=== PATIENT | male | born 1945 | race Caucasian/White ===

== ENCOUNTER 2023-10-08 00:56 | Observation (INO) | payer MEDICARE, OTHER, SELFPAY ==
[2023-10-08] VITALS (12 sets, daily range): BP systolic 132–168; BP diastolic 72–90; PULSE 61–87; RESP 11–24; TEMP 36.6–36.8; O2SAT 96–100; BMI 32.5; BMI 31.2
--- NOTE | 2023-10-08 01:27 | EKG12_ITS ---
Test Reason : cp Blood Pressure : / mmHG Vent. Rate : 086 BPM Atrial Rate : 086 BPM P-R Int : 194 ms QRS Dur : 084 ms QT Int : 364 ms P-R-T Axes : 021 -09 034 degrees QTc Int : 435 ms Sinus rhythm with frequent Premature ventricular complexes Minimal voltage criteria for LVH, may be normal variant ( R in aVL ) Septal infarct , age undetermined Abnormal ECG Confirmed by Ashish Kelly ([id number]), order editor ARIANNE DELACRUZ ([id number]) on 10/09/2023 11:06:18 AM Referred By: Confirmed By:Ashish Kelly
--- NOTE | 2023-10-08 01:27 | RAD_ITS ---
EXAM: XR Chest 1 View INDICATION: Male, 77 years old. Chest pain TECHNIQUE: Single AP view COMPARISON: None FINDINGS: DEVICES: None LUNGS: Mild elevation of the right hemidiaphragm. No confluent air space opacity. No concerning pulmonary nodule. No pleural effusion or pneumothorax. MEDIASTINUM: Borderline cardiomegaly. Mediastinal silhouette is within normal limits.. No central pulmonary vascular congestion. . SKELETAL STRUCTURES: No acute skeletal abnormality. Mild multilevel degenerative changes in the spine. UPPER ABDOMEN: Unremarkable RAD/Chest 1 View (Portable) IMPRESSION: Elevation right hemidiaphragm without acute cardiopulmonary disease Electronically Signed: Ra Somers MD at 2:21 EDT ,
--- NOTE | 2023-10-08 01:27 | ED.VIS.CHEST ---
HPI History of Present Illness Chief Complaint: Chest Pain Informant: patient Narrative Narrative: 77-year-old male who has had several episodes of chest discomfort left-sided pressure radiating into the left upper extremity, started day before yesterday, this past evening he had an episode this was about 3 hours ago, he took 2 nitroglycerin and it eventually went away and now he is asymptomatic but had a concerned because he needed to nitroglycerin to get the symptoms to resolve so he presents to the ER out of concern and advice of his PCP. He had a stent put in in 2013. His last normal stress test was about 2 years ago. The symptoms are similar to what he had when he had his stent put in. [facility] Medical History (Updated 10/08/23 @ 04:[address] Yelena Leblanc MD) Anemia CAD (coronary artery disease) CKD (chronic kidney disease), stage III Former tobacco use GERD (gastroesophageal reflux disease) HLD (hyperlipidemia) HTN (hypertension) Obesity Home Medications pantoprazole 40 mg tablet,delayed release 40 mg PO DAILY 10/08/23 [History Last Taken Unknown] pravastatin 20 mg tablet PO 10/08/23 [History Last Taken Unknown] Allergy/AdvReac Type Severity Reaction Status Date / Time No Known Allergies Allergy Verified 10/08/23 01:00 Surgical History (Updated 10/08/23 @ 04:[address] Yelena Leblanc MD) History of coronary angioplasty with insertion of stent Social History (Updated 10/08/23 @ 04:[address] Yelena Leblanc MD) household members: spouse Smoking Status: Former smoker alcohol intake: never substance use type: does not use ROS ROS ED Constitutional Constitutional ED: Denies chills or fever(s) Eyes Eyes: Denies change in vision or diplopia ENT ENT ED: Denies rhinorrhea or sore throat Cardiovascular Cardiovascular: Reports as per HPI, chest pain and radiating jaw, neck or arm pain; Denies palpitations Respiratory/Chest Respiratory/Chest: Denies cough or dyspnea Gastrointestinal Gastrointestinal: Denies abdominal pain, diarrhea, nausea or vomiting Genitourinary Genitourinary ED: Denies dysuria or hematuria Musculoskeletal Musculoskeletal: Denies back pain or neck pain Integumentary Denies abscess or rash Neurologic Neurologic: Denies headache(s), paresthesias or weakness Psychiatric Psychiatric: Denies anxiety or suicidal thoughts EXAM Physical Exam Const Vital Signs: 10/08/23 00:57 10/08/23 01:27 10/08/23 02:00 Temperature 97.9 F Temperature Source Temporal Pulse Rate 87 78 Respiratory Rate 24 H 19 H Blood Pressure 165/86 H 134/72 H Blood Pressure Mean 112 92 Pulse Ox 96 97 Oxygen Delivery Method Room Air Room Air Room Air 10/08/23 03:00 10/08/23 04:00 Temperature Temperature Source Pulse Rate 79 78 Respiratory Rate 23 H 19 H Blood Pressure 132/79 H 147/89 H Blood Pressure Mean 96 108 Pulse Ox 96 96 Oxygen Delivery Method Room Air Room Air Positive well nourished and well developed General Appearance ED: well developed and NAD HEENT Reports moist mucous membranes normocephalic and atraumatic Eyes PERRL and EOMs intact bilaterally Neck full ROM and supple Resp normal respiratory effort and clear to auscultation bilaterally Cardio regular rate, regular rhythm and no murmurs Peripheral Pulses: pulses 2+ throughout GI non-tender and non-distended Auscultation: normoactive bowel sounds Palpation: soft Back/Spine no CVA tenderness General Back: other FROM Extremity normal to inspection General Extremety ED: Negative for edema, pulses abnormal or tenderness General Extremity: Negative for edema or pulses abnormal Neuro oriented x3, CN's II-XII intact bilaterally and no sensory deficits noted Sensorium / Orientation: awake and alert Motor Exam: strength 5/5 throughout Psych mental status grossly normal Skin no rashes or lesions noted and no wounds Heart Score History: Highly Suspicious ECG: Nonspecific Repolarization Age: >/= 65 years Risk Factors: >/= 3 Risk Factors or History of CAD Troponin: </= Normal Limit Score: 7 MDM MDM MDM Narrative Medical decision making narrative: Patient's EKG does not show any acute injury pattern, he does have some ectopy. His workup is negative here, he was given aspirin did not have recurrent chest symptoms while here at rest. 2 sequential 2-hour troponin measurements were the same, at 43. His heart score is 7, he is amenable to being admitted for observation to get a stress test for further risk stratification, but at this point his symptoms are fairly high risk so I think that is most appropriate. Chest x-ray 1 view on my interpretation shows no acute abnormality radiology was in agreement. History & Record Review Additional record(s) reviewed:: Prior outpatient record Lab Data Attestation: I reviewed the patient's lab results. Labs: Laboratory Results - last 24 hr 10/08/23 10/08/23 01:43 03:55 WBC 4.8 RBC 3.90 L Hgb 11.7 L Hct 37.4 L MCV 95.9 H MCH 30.0 MCHC 31.3 L RDW Std Deviation 46.0 H RDW Coeff of Arti 13.0 Plt Count 157 MPV 9.6 Immature Gran % (Auto) 0.600 Neut % (Auto) 67.1 Lymph % (Auto) 21.3 [place] % (Auto) 8.7 Eos % (Auto) 1.7 Baso % (Auto) 0.6 Absolute Neuts (auto) 3.2 Absolute Lymphs (auto) 1.03 Nucleated RBC % 0 Sodium 145 Potassium 4.4 Chloride 112 H Carbon Dioxide 28.0 Anion Gap 5 BUN 21 H Creatinine 1.35 H Estim Creat Clear Calc 50.95 Est GFR (MDRD) Af Amer 66 Est GFR (MDRD) Non-Af 55 L BUN/Creatinine Ratio 15.6 Glucose 126 H Calcium 8.0 L Troponin I High Sens 43 43 Rhythm Strip Rhythm Strip: Sinus Rhythm Rate: 85 Ectopy: PVC(s) EKG Initial EKG: Attestation: I personally reviewed and interpreted this EKG as follows: Interpretation: Sinus Rhythm and No Acute Injury Pattern Comments: Anteroseptal Q waves. PVCs. No signs of acute injury pattern. Prior: No Prior Management Discussion w/another healthcare provider: Hospitalist Discharge Plan Dx/Rx/DC Orders Clinical Impression: Chest pain Disposition Disposition: Acute Care Hospital [facility]
[2023-10-08 01:49] LABS: Absolute Lymphocyte Count 1.03 X10^3/uL (0.83-4.51); Absolute Neutrophil Count 3.2 X10^3/uL (2.0-7.7); Basophil# 0.03 X10^3/uL; Basophil% 0.6 % (0-1); Eosinophil# 0.08 X10^3/uL; Eosinophils% 1.7 % (0-5); Hematocrit 37.4 % (40-54); Hemoglobin 11.7 g/dL (13.0-16.5); Lymphocyte # 1.03 X10^3/ul (0.83-4.51); Lymphocyte % 21.3 % (19-41); Mean Corp Hgb Conc 31.3 g/dL (32-36); Mean Corpuscular Volume 95.9 fL (80-94); Mean Platelet Vol. 9.6 fl (6.2-12.0); Monocyte# 0.42 X10^3/uL; Monocyte% 8.7 % (0-10); NRBC Flagged by Analyzer 0 % (0-5); Neutrophil # 3.24 X10^3/uL (2.7-7.7); Neutrophil % 67.1 % (47-70); Platelet Count 157 K/mm3 (150-450); White Blood Count 4.8 K/mm3 (4.4-11.0)
[2023-10-08 02:08] LABS: Anion Gap 5 (5-15); BUN 21 mg/dL (7-18); BUN/Creat Ratio 15.6 RATIO (10-20); Chloride 112 mmol/L (98-107); Creatinine, Serum 1.35 mg/dL (0.70-1.30); EST Glomerular Filtration Rate 55 mL/min (>60); Est Glom Filt Rate - Afr Amer 66 mL/min (>60); Estimated Creatinine Clearance 50.95 ml/min; Glucose 126 mg/dL (74-106); Potassium 4.4 mmol/L (3.5-5.1); Sodium Level 145 mmol/L (136-145); Troponin-I HS (w/2H Reflex) 43 pg/mL (3.0-78.0)
[2023-10-08] MEDS: Aspirin 81 MG TAB.CHEW 324 MG PO (03:11)
[2023-10-08 03:40] LABS: Reflex Troponin-HS? (from REC) Y
[2023-10-08 04:28] LABS: Troponin-I HS 43 pg/mL (3.0-78.0)
--- NOTE | 2023-10-08 04:48 | PCM.HP.STD ---
HPI - General General Date of Admission: 10/08/23 Date of Service: 10/08/23 Chief Complaint: Chest pain. HPI Narrative The patient is a 77 y/o M w/ PMHx: HTN, HLD, CAD s/p PCI, GERD, Obesity, Possible CKD stage III unclear subtype, Anemia who presents to the [facility] ED on 10/08/23 with history of several episodes of chest discomfort, left-sided described as a pressure like sensation radiating into the left upper extremity starting 48 hours prior with an episode the evening prior to presentation lasting about 3 hours prompting him to self administer 2 nitroglycerin with eventual improvement and resolution of his symptoms prompting eventual ED evaluation to be cautious. He notes his last stress test was approximately 2 years prior and he had a remote stent placed in 2013. He does state that the symptoms that he is currently having are similar to when he presented for his chest pain and required stent placement. He notes the discomfort at its worst was rated 5 out of 10 in severity and currently resolved. He denies any dyspnea, diaphoresis, nausea or emesis with his chest discomfort episodes. He notes that these of occurred at rest and seem irrespective of activity. Workup in the ED included T97.9, heart rate 87, BP initially 165/86 with most recent repeat 147/89, respiratory rate 24, 96% on room air, CBC with WBC 4.8, hemoglobin 11.7, MCV 95.9, platelet 157 that marked shift, BMP with chloride 112, BUN/creatinine 21/1.35, glucose 126, calcium 8, initial troponin 43 with repeat delta 43, chest x-ray preliminary with no acute cardiopulmonary findings but final read per radiology pending upon evaluation, EKG with sinus rhythm with anteroseptal Q waves, PVC with no acute evidence of ischemia with no comparison available. [facility] Medical History (Updated 10/08/23 @ 05:[address] Yelena Leblanc MD) Anemia CAD (coronary artery disease) CKD (chronic kidney disease), stage III GERD (gastroesophageal reflux disease) HLD (hyperlipidemia) HTN (hypertension) Obesity Home Medications carvedilol 6.25 mg tablet 6.25 mg PO BID 10/08/23 [History Last Taken Unknown] nitroglycerin 0.4 mg sublingual tablet mg sublingual 10/08/23 [History Last Taken Unknown] pantoprazole 40 mg tablet,delayed release 40 mg PO DAILY 10/08/23 [History Last Taken Unknown] pravastatin 20 mg tablet PO 10/08/23 [History Last Taken Unknown] Allergy/AdvReac Type Severity Reaction Status Date / Time No Known Allergies Allergy Verified 10/08/23 01:00 Family History (Updated 10/08/23 @ 05:[address] Yelena Leblanc MD) Mother Breast cancer Father Heart disease Hypertension CAD (coronary artery disease) Valvular heart disease Surgical History (Updated 10/08/23 @ 05:[address] Yelena Leblanc MD) History of coronary angioplasty with insertion of stent S/P bilateral inguinal hernia repair Social History (Updated 10/08/23 @ 05:[address] Yelena Leblanc MD) household members: spouse Smoking Status: Never smoker alcohol intake: current alcohol intake frequency: a few times a month substance use type: does not use ROS ROS Narrative Admission Review of Systems: CONSTITUTIONAL: No weight loss, fever, chills, + weakness or fatigue. HEENT: Eyes: No visual loss, blurred vision, double vision or yellow sclerae. Ears, Nose, Throat: No hearing loss, sneezing, congestion, runny nose or sore throat. SKIN: No rash or itching, lesions, wounds. CARDIOVASCULAR: + Chest discomfort. No palpitations, edema, orthopnea, syncopal events. RESPIRATORY: No shortness of breath, cough or sputum, wheezing, hemoptysis. GASTROINTESTINAL: No anorexia, nausea, vomiting or diarrhea, abdominal pain, melena, BRBPR. GENITOURINARY: No dysuria, frequency, urgency or retention. NEUROLOGICAL: No headache, dizziness, syncope, paralysis, ataxia, numbness or tingling in the extremities, focal weakness, change in bowel or bladder control, seizure. MUSCULOSKELETAL: + muscle, back pain, joint pain or stiffness. HEMATOLOGIC: + Anemia. No reported easy bleeding or bruising. LYMPHATICS: No enlarged nodes. No history of splenectomy. PSYCHIATRIC: No history of depression or anxiety. ENDOCRINOLOGIC: No reports of sweating, cold or heat intolerance. No polyuria or polydipsia. ALLERGIES: No history of asthma, hives, eczema or rhinitis. Vital Signs Vital Signs Vital Signs: 10/08/23 00:57 10/08/23 01:27 10/08/23 02:00 Temperature 97.9 F Temperature Source Temporal Pulse Rate 87 78 Respiratory Rate 24 H 19 H Blood Pressure 165/86 H 134/72 H Blood Pressure Mean 112 92 Pulse Ox 96 97 Oxygen Delivery Method Room Air Room Air Room Air 10/08/23 03:00 10/08/23 04:00 Temperature Temperature Source Pulse Rate 79 78 Respiratory Rate 23 H 19 H Blood Pressure 132/79 H 147/89 H Blood Pressure Mean 96 108 Pulse Ox 96 96 Oxygen Delivery Method Room Air Room Air Weight Weight: 207 lb 14.334 oz Body Mass Index (BMI) 32.5 Physical Exam Narrative Physical Examination: General: Awake, alert, oriented x 3 and cooperative, seated upright in the ED bed in no apparent distress, currently chest pain resolved. Skin: Normal color, normal turgor, no icterus, no cyanosis except occasional staged ecchymoses. HEENT: AT/NC, EOMI, PERRLA, MMM, no carotid bruits or JVD noted. Lungs: CTA bilaterally, moderate effort, mild decrease BL bases, no rales, ronchi or wheezing. Heart: Regular rate and rhythm; no gallop, rub audible, no reproducible chest discomfort with palpation of the anterior chest. Abdomen: Soft, obese, NTTP, ND, distant normal BS, no appreciated HSM. Extremities: No cyanosis, clubbing, or edema. Neurological: Patient awake, alert, oriented as noted, cognitive function intact; pupils equally reactive to light and accommodation, cranial nerves II-XII grossly normal, moving all 4 extremities, no focal deficits, strength preserved. Psychiatric: Affect appears fatigued otherwise normal, no acute evidence of depressive or anxiety feelings. Results Lab / Micro Data 10/08/23 01:43 10/08/23 01:43 Labs: Laboratory Results - last 24 hr 10/08/23 01:43: WBC 4.8, RBC 3.90 L, Hgb 11.7 L, Hct 37.4 L, MCV 95.9 H, MCH 30.0, MCHC 31.3 L, RDW Std Deviation 46.0 H, RDW Coeff of Arti 13.0, Plt Count 157, MPV 9.6, Immature Gran % (Auto) 0.600, Neut % (Auto) 67.1, Lymph % (Auto) 21.3, [place] % (Auto) 8.7, Eos % (Auto) 1.7, Baso % (Auto) 0.6, Absolute Neuts (auto) 3.2, Absolute Lymphs (auto) 1.03, Nucleated RBC % 0, Sodium 145, Potassium 4.4, Chloride 112 H, Carbon Dioxide 28.0, Anion Gap 5, BUN 21 H, Creatinine 1.35 H, Estim Creat Clear Calc 50.95, Est GFR (MDRD) Af Amer 66, Est GFR (MDRD) Non-Af 55 L, BUN/Creatinine Ratio 15.6, Glucose 126 H, Calcium 8.0 L, Troponin I High Sens 43 10/08/23 03:55: Troponin I High Sens 43 Rhythm Strip Rhythm Strip: Sinus Rhythm Rate: 85 Ectopy: PVC(s) Assessment & Plan Assessment/Plan (1) Chest pain: PLAN: Plan The patient is a 77 y/o M w/ PMHx: HTN, HLD, CAD, GERD, Obesity, Possible CKD stage III unclear subtype, Anemia who presents to the [facility] ED on 10/08/23 with history of several episodes of chest discomfort, left-sided described as a pressure like sensation radiating into the left upper extremity starting 48 hours prior with an episode the evening prior to presentation lasting about 3 hours prompting him to self administer 2 nitroglycerin with eventual improvement and resolution of his symptoms prompting eventual ED evaluation to be cautious. #1. Chest Pain: EKG in the ED with sinus rhythm with anteroseptal Q waves, PVC with no acute evidence of ischemia with no comparison available, troponin 43 with repeat delta 43. Will admit to PCU, place on a monitored bed to assure no acute myocardial infarction with serial cardiac enzymes and EKGs. If repeat serial cardiac enzymes remain unremarkable will pursue a.m. cardiac stress testing. FLP in AM. Magnesium level requested. ASA, NG. If enzymes rise or stress test is concerning will consult cardiology. #2. Hyperglycemia, mild: Admission glucose 126, will repeat labs in a.m. and if further elevated or concerns arise low threshold to obtain hemoglobin A1c. #3. CAD: Status post previous PCI 2013, will continue aspirin, statin, clarifying Coreg, not on VIELKA or/ARB per current list, add if appropriate. #4. Chronic Kidney Disease Stage III unclear subtype versus renal insufficiency versus possibly WILLIE, unclear to determine as patient has no lab comparisons: Admission BUN/Cr 21/1.35, do suspect primarily CKD stage III, baseline renal function unknown, repeat BMP in AM to help further elucidate chronicity. #5. Anemia, macrocytic, unclear chronicity, possibly chronic: Admission hemoglobin 11.7, MCV 95.9, unclear baseline hemoglobin, will continue to trend and repeat CBC in the morning to further elucidate chronicity. #6. Hypertension: Continue home regimen including Coreg although clarifying as does not appear to have been recently filled, add additional regimen as needed, PRN hydralazine. #7. Hyperlipidemia: Continue home statin regimen. AM FLP. #8. Obesity: Weight loss and lifestyle changes encouraged. #9. GERD: We will continue patient on PPI. DVT prophylaxis: Lovenox. #10. Former tobacco use: Encourage continued tobacco cessation. #11. DVT prophylaxis: Lovenox. #12. CODE status: Patient HCPOA and living will are not in place but his who is present he notes would be his decision-maker if he was unable. Discussed CODE status at length including difference between FULL code, DNR-CCA and DNR-CC status. Following discussions about the differences in these status, requested Full Code status. Advanced Care Planning Face to Face Time: 16 minutes. Charges/Coding Visit Charges Inpatient E&M: 41108 Init Hosp L2 Procedures Hospitalists Procedures: 83596 Advncd Care Plan 30 Min
--- NOTE | 2023-10-08 04:54 | EKG12_ITS ---
Test Reason : CP MARCOS Blood Pressure : / mmHG Vent. Rate : 067 BPM Atrial Rate : 067 BPM P-R Int : 150 ms QRS Dur : 088 ms QT Int : 398 ms P-R-T Axes : -09 -02 042 degrees QTc Int : 420 ms Normal sinus rhythm Septal infarct , age undetermined Abnormal ECG When compared with ECG of 08-OCT-2023 01:04, MANUAL COMPARISON REQUIRED, DATA IS UNCONFIRMED Confirmed by Ashish Kelly ([id number]), scientific publications editor ARIANNE DELACRUZ ([id number]) on 10/09/2023 11:08:41 AM Referred By: Confirmed By:Ashish Kelly
[2023-10-08 05:39] LABS: Magnesium 2.2 mg/dL (1.6-2.6)
[2023-10-08 09:51] LABS: Troponin-I HS 45 pg/mL (3.0-78.0)
[2023-10-08] MEDS: Pantoprazole Sodium 40 MG Tablet PO (12:16)
[2023-10-08] MEDS: Aspirin E.C. 81 MG Tablet PO (12:16)
[2023-10-08] MEDS: Carvedilol 6.25 MG Tablet PO ×2 (12:17→22:07)
[2023-10-08] MEDS: Enoxaparin 40 MG/0.4 ML Syringe SC (12:17)
[2023-10-08] MEDS: 0.9% Normal Saline (1000mL) 1,000 ML 75 ML IV (12:31)
--- NOTE | 2023-10-08 18:58 | PCM.HOSP.N ---
Hospitalist Note Patient was seen and examined today, he will undergo a nuclear exercise stress test tomorrow, patient's troponins were negative. Patient does not have any chest pain and appears to be comfortable at the time of my visit, he does not complain of any shortness of breath.
[2023-10-08] MEDS: Pravastatin 20 MG Tablet PO (22:07)
[2023-10-09 05:20] VITALS: BMI 31.5
--- NOTE | 2023-10-09 05:55 | EKG12_ITS ---
Test Reason : am ekg Blood Pressure : / mmHG Vent. Rate : 063 BPM Atrial Rate : 063 BPM P-R Int : 166 ms QRS Dur : 084 ms QT Int : 414 ms P-R-T Axes : -03 -04 054 degrees QTc Int : 423 ms Normal sinus rhythm Septal infarct , age undetermined T wave abnormality, consider anterior ischemia Abnormal ECG When compared with ECG of 08-OCT-2023 07:41, MANUAL COMPARISON REQUIRED, DATA IS UNCONFIRMED Confirmed by Ashish Kelly ([id number]), writer editor ARIANNE DELACRUZ ([id number]) on 10/10/2023 6:18:43 AM Referred By: Confirmed By:Ashish Kelly
[2023-10-09 06:26] VITALS: BP 139/81; PULSE 62; RESP 18; TEMP 36.7; O2SAT 97
[2023-10-09] MEDS: Aspirin E.C. 81 MG Tablet PO (06:30)
[2023-10-09 07:32] LABS: Absolute Lymphocyte Count 0.93 X10^3/uL (0.83-4.51); Absolute Neutrophil Count 3.3 X10^3/uL (2.0-7.7); Basophil# 0.03 X10^3/uL; Basophil% 0.6 % (0-1); Eosinophil# 0.07 X10^3/uL; Eosinophils% 1.5 % (0-5); Hematocrit 39.3 % (40-54); Hemoglobin 12.5 g/dL (13.0-16.5); Lymphocyte # 0.93 X10^3/ul (0.83-4.51); Mean Corp Hgb Conc 31.8 g/dL (32-36); Mean Corpuscular Volume 94.5 fL (80-94); Mean Platelet Vol. 9.9 fl (6.2-12.0); Monocyte# 0.28 X10^3/uL; NRBC Flagged by Analyzer 0 % (0-5); Neutrophil # 3.33 X10^3/uL (2.7-7.7); Neutrophil % 71.5 % (47-70); Platelet Count 165 K/mm3 (150-450); RBC Distribution Width CV 12.8 % (11.6-14.6); RBC Distribution Width SD 44.5 fl (35.1-43.9); Red Blood Count 4.16 M/mm3 (4.6-6.2); White Blood Count 4.7 K/mm3 (4.4-11.0)
[2023-10-09 08:19] LABS: AST(SGOT) 16 U/L (15-37); Alanine Aminotransfer ALT/SGPT 17 U/L (16-61); Albumin, Serum 3.2 g/dL (3.2-5.0); Alkaline Phosphatase 80 U/L (45-117); Anion Gap 4 (5-15); BUN 21 mg/dL (7-18); BUN/Creat Ratio 19.3 RATIO (10-20); Calcium,Total 8.5 mg/dL (8.5-10.1); Chloride 108 mmol/L (98-107); Cholesterol 116 mg/dL (200); Creatinine, Serum 1.09 mg/dL (0.70-1.30); EST Glomerular Filtration Rate 70 mL/min (>60); Est Glom Filt Rate - Afr Amer 84 mL/min (>60); Estimated Creatinine Clearance 62.16 ml/min; Globulin 3.3 g/dL (2.2-4.2); Glucose 95 mg/dL (74-106); High Density Lipoprotein 35 mg/dL; Potassium 4.6 mmol/L (3.5-5.1); Protein, Total 6.5 g/dL (6.4-8.2); Sodium Level 139 mmol/L (136-145); Triglycerides 78 mg/dL; Very Low Density Lipoprotein 16 mg/dL (5-40)
[2023-10-09 08:23] VITALS: O2SAT 95
[2023-10-09 11:32] VITALS: BP 134/57; PULSE 90; RESP 14; TEMP 36.8; O2SAT 98
--- NOTE | 2023-10-09 12:25 | STRESSREP_ITS ---
Stress Test Report Exercise myocardial perfusion stress test. 77-year-old man with a history of coronary artery disease Stress protocol: Resting EKG demonstrates normal sinus rhythm with a rate of 86 bpm resting blood pressure is 130/70 mmHg. The patient exercised according to the regular Robert protocol for a total duration of 2 minutes and 26 seconds attaining a maximum heart rate of 108 bpm which was 75% of maximum predicted heart rate; the maximum workload was 4.6 METS metabolic equivalents. At rest there were no ST or T wave changes noted to suggest ischemia and at peak exercise upsloping ST changes only were noted which did not meet the criteria for ischemia. Due to the inability to attain maximum predicted heart rate the test was changed to a pharmacologic myocardial perfusion stress test and 0.4 mg of regadenoson was administered. Myocardial perfusion protocol. 12.0 mCi of technetium 99m sestamibi was injected at rest. 0.4 mg of regade noson was infused per usual protocol and at peak infusion 34.7 mCi of technetium 99m sestamibi was injected stress images were obtained stress and rest images were reconstructed in comparing the short axis vertical long and horizontal long axis. Gated images were also obtained. Perfusion SPECT analysis: Review of the stress images demonstrate normal uptake of tracer noted in all areas of the myocardium. 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 No reversibility is noted suggest ischemia. Gated SPECT analysis: The gated ejection fraction is 58%. 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 Preserved ejection fraction
--- NOTE | 2023-10-09 13:56 | DCINST_ITS ---
Discharge Instructions Diet Discharge Diet: No restrictions Activity Discharge Activity: Return to Normal Activity Weight Bearing Status: Full weight bearing Follow Up Care Test Results: Test results from this visit will be discussed in further detail at your follow- up appointment, if applicable. Discharge Plan Admission Admit Date/Time: 10/08/23 04:50 Primary Reason for Your Visit: Noncardiac chest pain Attending Provider: Riley Jacobs Primary Care Provider: Gagan Schofield Consulting Providers: Yelena Leblanc Discharge Orders/Prescriptions Prescriptions: New nitroglycerin 0.4 mg Tablet, Sublingual 0.4 mg sublingual Q5M PRN (Reason: CHEST PAIN) Qty: 25 0RF Continued pantoprazole 40 mg tablet,delayed release (DR/EC) 40 mg PO DAILY pravastatin 20 mg tablet 20 mg PO .every other day Patient Comments: Half a tablet every other day. carvedilol 6.25 mg tablet 6.25 mg PO BID nitroglycerin 0.4 mg tablet, sublingual 0.4 mg sublingual PRN aspirin 81 mg capsule 81 mg PO DAILY Referrals / Follow Up: Gagan Schofield MD [Primary Care Provider] - Zachary Kyle DO [Non-Staff] - Ashish Kelly MD [Med Staff - Active Staff] - See Referral Note (At your scheduled appointment time in October 2023) Disposition Disposition (needs filled in before D/C Order can be placed): Home, Self Care
--- NOTE | 2023-10-09 13:59 | DS.PCM_ITS ---
Providers Date of Admission: 10/08/23 Date of Discharge: 10/09/23 Primary Care Physician: Dr. Gagan Schofield MD Reason For Visit: CHEST PAIN Diagnosis Discharge Diagnosis (1) Chest pain: Status: Acute Code(s): R07.9 - Chest pain, unspecified Plan 1. Musculoskeletal chest pain #2 hyperlipidemia #3 coronary artery disease Medications at Discharge Home Medications aspirin 81 mg capsule 81 mg PO DAILY heart health 10/08/23 carvedilol 6.25 mg tablet 6.25 mg PO BID blood pressure 10/08/23 nitroglycerin 0.4 mg sublingual tablet 0.4 mg sublingual PRN chest pain 10/08/23 pantoprazole 40 mg tablet,delayed release 40 mg PO DAILY reflux 10/08/23 pravastatin 20 mg tablet 20 mg PO .every other day cholesterol 10/08/23 nitroglycerin 0.4 mg sublingual tablet 0.4 mg sublingual Q5M PRN CHEST PAIN #25 tabs 10/09/23 Hospital Course Operations None Procedures Stress test Summary of Care Provided Minutes Spent on Discharge: 30 Hospital Course: 77-year-old white male with history of coronary artery disease was seen in the emergency room at [facility] complaining of intermittent chest discomfort. Workup in the emergency room including an EKG and a chest x-ray as well as cardiac enzymes was unremarkable. Patient was placed in observation status on PCU, serial cardiac enzymes were obtained and these were negative. Patient underwent a exercise nuclear stress test on 10/09/2023 that was negative for reversible ischemia. On 10/09/2023, patient was seen and examined: On examination he appeared in good health and spirits. Vital signs as documented. Skin warm and dry and without overt rashes. Neck without JVD, neck was supple, trachea midline, thyroid was normal. Lungs clear bilaterally, normal air movement was noted. Heart exam notable for regular rhythm, normal sounds and absence of murmurs, rubs or gallops. Abdomen unremarkable and without evidence of organomegaly, masses, or abdominal aortic enlargement. Bowel sounds are present, abdomen is not distended. Extremities nonedematous, no cyanosis was noted, no clubbing was noted. Neuro: Cranial nerves II through XII are grossly intact, no focal motor deficits were noted, sensation to light touch and pinprick intact, motor exam 5/5 throughout. Psych: Patient is alert and oriented x3, he does not appear anxious or depressed, he does not appear agitated. Patient was discharged home in stable condition on 10/09/2023 Weight / BMI Weight Weight: 91.4 kg Body Mass Index (BMI) 31.5 ABG / Lab / Microbiology Data 10/09/23 06:30 10/09/23 06:30 Laboratory: Laboratory Results - last 24 hr 10/09/23 06:30: WBC 4.7, RBC 4.16 L, Hgb 12.5 L, Hct 39.3 L, MCV 94.5 H, MCH 30.0, MCHC 31.8 L, RDW Std Deviation 44.5 H, RDW Coeff of Arti 12.8, Plt Count 165, MPV 9.9, Immature Gran % (Auto) 0.400, Neut % (Auto) 71.5 H, Lymph % (Auto) 20.0, [place] % (Auto) 6.0, Eos % (Auto) 1.5, Baso % (Auto) 0.6, Absolute Neuts (auto) 3.3, Absolute Lymphs (auto) 0.93, Nucleated RBC % 0, Sodium 139, Potassium 4.6, Chloride 108 H, Carbon Dioxide 27.0, Anion Gap 4 L, BUN 21 H, Creatinine 1.09, Estim Creat Clear Calc 62.16, Est GFR (MDRD) Af Amer 84, Est GFR (MDRD) Non-Af 70, BUN/Creatinine Ratio 19.3, Glucose 95, Calcium 8.5, Total Bilirubin 1.20 H, AST 16, ALT 17, Alkaline Phosphatase 80, Total Protein 6.5, Albumin 3.2, Globulin 3.3, Albumin/Globulin Ratio 1.0, Triglycerides 78, Cho lesterol 116, LDL Cholesterol 65, VLDL Cholesterol 16, HDL Cholesterol 35 L D/C Instructions Discharge Diet: No restrictions Weight Bearing Status: Full weight bearing Meaningful Use Info Meaningful Use Diagnoses (Choose all that apply): None applicable Discharge Plan Admission Admit Date/Time: 10/08/23 04:50 Primary Reason for Your Visit: Noncardiac chest pain Attending Provider: Riley Jacobs Primary Care Provider: Gagan Schofield Consulting Providers: Yelena Leblanc Discharge Orders/Prescriptions Prescriptions: New nitroglycerin 0.4 mg Tablet, Sublingual 0.4 mg sublingual Q5M PRN (Reason: CHEST PAIN) Qty: 25 0RF Continued pantoprazole 40 mg tablet,delayed release (DR/EC) 40 mg PO DAILY pravastatin 20 mg tablet 20 mg PO .every other day Patient Comments: Half a tablet every other day. carvedilol 6.25 mg tablet 6.25 mg PO BID nitroglycerin 0.4 mg tablet, sublingual 0.4 mg sublingual PRN aspirin 81 mg capsule 81 mg PO DAILY Referrals / Follow Up: Gagan Schofield MD [Primary Care Provider] - Zachary Kyle DO [Non-Staff] - Ashish Kelly MD [Med Staff - Active Staff] - See Referral Note (At your scheduled appointment time in October 2023) Disposition Disposition (needs filled in before D/C Order can be placed): Home, Self Care Charges/Coding Visit Charges Inpatient E&M: 44223 Disch Hosp
--- NOTE | 2023-10-09 14:04 | CASEMGMT ---
Met with patient to complete AVALOS form. AVALOS form explained to patient who voiced understanding and signed form. Original form placed in pt?s chart and copy provided to?patient. Jaimie Fox, Discharge Planning Asst
--- NOTE | 2023-10-09 15:31 | CASEMGMT ---
Patient has order for discharge. RN CM in to discuss needs at discharge. Patient denies needs or help at discharge. Patient has no further questions or concerns.
== END 2023-10-09 13:59 | disposition home or self-care (01) ==
LOC: ED 04:43 → PCU 05:15
PROVIDERS: Admitting Provider Family Medicine; Emergency Provider Emergency Medicine; PCP Family Medicine; Visit Provider Internal Medicine
DX: R07.89 Other chest pain (principal); N18.30 Chronic kidney disease, stage 3 unspecified; E78.5 Hyperlipidemia, unspecified; K21.9 Gastro-esophageal reflux disease without esophagitis; I12.9 Hypertensive chronic kidney disease with stage 1 through stage 4 chronic kidney disease, or unspecified chronic kidney disease; I25.10 Atherosclerotic heart disease of native coronary artery without angina pectoris; Z87.891 Personal history of nicotine dependence; Z79.899 Other long term (current) drug therapy; E66.9 Obesity, unspecified; Z68.32 Body mass index [BMI] 32.0-32.9, adult
CPT/HCPCS: 36415; 71045; 78452; 80048; 80053; 80061; 83735; 84484; 85025; 93005; 93017; 96360; 96361; 96372; 99221; 99285; A9500; J7030; A4216; G0378; J2785

== ENCOUNTER 2024-02-22 13:20 | Inpatient (IN) | payer MEDICARE, OTHER, SELFPAY ==
[2024-02-22] VITALS (7 sets, daily range): BP systolic 109–187; BP diastolic 51–100; PULSE 55–110; RESP 16–28; TEMP 37.3–39.6; O2SAT 95–99; BMI 32.5; BMI 31.7
--- NOTE | 2024-02-22 14:14 | RAD_ITS ---
STUDY: X-RAY - LEFT HAND REASON FOR EXAM: Male, 78 years old. pain, swelliing TECHNIQUE: 3 view(s) of the hand. COMPARISON: None. 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 Mild PIP joint space narrowing and osteoarthritis of the second and third digits with mild to moderate surrounding soft tissue swelling. Old fracture at the corner and radial side of the third proximal phalanx. No acute fracture is present. Mild to moderate soft tissue swelling throughout the hand. Small calcific density seen in the soft tissues over the dorsum of the hand distal to the ulnar styloid. Normal radiocarpal articulation. Normal distal radioulnar joint. Normal visualized carpal bones. Normal carpal articulations Normal carpometacarpal articulation of the thumb. Normal second through fifth carpometacarpal joints. Normal metacarpi. Normal metacarpophalangeal joint of the thumb. Normal interphalangeal joint of the thumb. Normal proximal and distal phalanges of the thumb. RAD/Hand Min 3 Views IMPRESSION: Degenerative joint disease of the hand, as described above. Electronically Signed: Aleks Lambert MD at 16:12 EDT Reading Location ID and State: [facility] / [place] , Service support ,
--- NOTE | 2024-02-22 14:15 | EKG12_ITS ---
Test Reason : Blood Pressure : / mmHG Vent. Rate : 110 BPM Atrial Rate : 110 BPM P-R Int : 170 ms QRS Dur : 078 ms QT Int : 300 ms P-R-T Axes : 024 -03 076 degrees QTc Int : 406 ms Sinus tachycardia with frequent Premature ventricular complexes in a pattern of bigeminy can not rule out Septal infarct , age undetermined Abnormal ECG Confirmed by Ashish Kelly ([id number]), pictures editor LOGAN DOMINGO ([id number]) on 02/25/2024 8:53:20 AM Referred By: Confirmed By:Ashish Kelly
--- NOTE | 2024-02-22 14:18 | EX.ED.DYSGE1 ---
HPI History of Present Illness Chief Complaint: Bite Narrative Narrative: 78-year-old male past medical history of hypertension, hypercholesterolemia, coronary artery disease presents with cat bite to his left hand that he sustained yesterday evening at around 8:30 PM. This was approximately 18 hours ago. He states that he was petting his cat, and got to close to the tail. The cat turned around and bit him in the left hand. He is right-hand dominant. This morning when he awoke, he noticed that his left hand was very swollen, tender, and sore. There was redness to the back of his left hand. He presents with his because the cat bite. [facility] Medical History Anemia CKD (chronic kidney disease), stage III Obesity GERD (gastroesophageal reflux disease) HLD (hyperlipidemia) HTN (hypertension) Chest pain CAD (coronary artery disease) Home Medications ?Medication ?Instructions ?Recorded ?Last Taken ?Type aspirin 81 mg capsule 81 mg PO DAILY heart health 10/08/23 10/07/23 History carvedilol 6.25 mg tablet 6.25 mg PO BID blood pressure 10/08/23 Unknown History pantoprazole 40 mg tablet,delayed 40 mg PO DAILY reflux 10/08/23 Unknown History release pravastatin 20 mg tablet 20 mg PO .every other day 10/08/23 Unknown History cholesterol nitroglycerin 0.4 mg sublingual 0.4 mg sublingual Q5M PRN CHEST 10/09/23 Unknown Rx tablet PAIN #25 tabs Allergy/AdvReac Type Severity Reaction Status Date / Time No Known Allergies Allergy Verified 02/22/24 14:16 Family History Mother Breast cancer Father Heart disease Hypertension CAD (coronary artery disease) Valvular heart disease Surgical History S/P bilateral inguinal hernia repair History of coronary angioplasty with insertion of stent Social History household members: spouse Smoking Status: Never smoker alcohol intake: current alcohol intake frequency: a few times a month substance use type: does not use ROS ROS ED ROS Narrative Constitutional: Questionable fever, no chills. HEENT: No sore throat. No neck pain. No loss of vision. No rhinorrhea. Cardiovascular: No chest pain. No palpitations. No pedal edema. Respiratory: No cough, no shortness of breath. Abdominal: No abdominal pain. No nausea. No vomiting. Genitourinary: No dysuria. No hematuria. Musculoskeletal: No myalgias. Positive pain and swelling with redness to dorsum of left hand at base of second digit. Neurologic: No headaches. No dizziness. No lightheadedness. Skin: No rash. No change in color. Psychiatric: No depression. No anxiety. EXAM Physical Exam Narrative Exam Narrative: Temperature 102.7 ?F, vital signs noted. Nontoxic-appearing. Positive tachycardia. Lungs clear to auscultation bilaterally. Abdomen soft and nontender with normal active bowel sounds. Inspection of the left hand on the dorsum does reveal a puncture wound on the distal portion of the second metacarpal. There is surrounding redness with lymphangitic streaking up to the level of his mid forearm to elbow. Able to oppose thumb. Good capillary refill of fingers. Full range of motion of wrist. Positive tenderness to palpation and swelling on dorsum of hand. No axillary lymphadenopathy, left. Const Vital Signs: 02/22/24 13:21 02/22/24 15:58 02/22/24 15:58 Temperature 102.7 F H 103.2 F H Temperature Source Oral Oral Pulse Rate 104 H 110 H Respiratory Rate 16 24 H Blood Pressure 187/85 H 140/100 H Blood Pressure Mean 119 113 Pulse Ox 95 95 96 Oxygen Delivery Method Room Air Room Air Room Air 02/22/24 15:58 Temperature 103.2 F H Temperature Source Pulse Rate 110 H Respiratory Rate 24 H Blood Pressure 140/100 H Blood Pressure Mean 113 Pulse Ox 96 Oxygen Delivery Method MDM MDM MDM Narrative Medical decision making narrative: As patient is tachycardic and has a temperature elevated at 102.7 ?F, concern is for sepsis as well as cellulitis from cat bite. I have low concern for flexor tenosynovitis of the finger as the puncture wound is more on the back of his hand. Attempt will be made to remove his wedding band. X-rays will be obtained and sepsis workup pursued. He will be administered Zosyn intravenously. EKG was obtained and interpreted by myself independently as sinus tachycardia at 110 bpm with PVCs/bigeminy but no acute ST changes. No STEMI. I reviewed his laboratory work and he does have a leukocytosis of 13.9 with hemoglobin 11.8, hematocrit 36.6, platelet count normal at 153. INR is normal at 1.2 as part of the sepsis labs. BUN elevated at 24 with a normal creatinine of 1.26, chloride is slightly elevated at 109 which I think is nonspecific, lactic acid is normal at 1.2. AST is low at 13. X-rays of the left hand interpreted by myself independently shows soft tissue swelling but no evidence of acute fracture or foreign body. X-ray of the left hand obtained and interpreted by myself independently has soft tissue swelling, no fracture, no foreign body. At this point in time, given his cat bite on the dorsum of his left hand and the lymphangitic streaking with fever and leukocytosis I do feel that he needs admission for a few rounds of antibiotics. They were able to remove his wedding band from his left fourth digit as well. Patient will be discussed with the hospitalist for admission. He is in stable condition. In discussion with Dr. Hallman with hospitalist medicine, she requested consultation with hand. I was able to discuss the patient with Dr. Óscar Wu who agrees with the patient being able to stay here and he can see him in consultation. There is no need for transfer currently. History & Record Review Discussion w/independent historian: Patient Lab Data Attestation: I reviewed the patient's lab results. Labs: Laboratory Results - last 24 hr 02/22/24 14:28 WBC 13.9 H RBC 3.97 L Hgb 11.8 L Hct 36.6 L MCV 92.2 MCH 29.7 MCHC 32.2 RDW Std Deviation 43.8 RDW Coeff of Arti 13.1 Plt Count 153 MPV 9.6 Immature Gran % (Auto) 1.100 H Neut % (Auto) 91.7 H Lymph % (Auto) 3.1 L [place] % (Auto) 3.7 Eos % (Auto) 0.1 Baso % (Auto) 0.3 Absolute Neuts (auto) 12.8 H Absolute Lymphs (auto) 0.43 L Nucleated RBC % 0 PT 15.4 H INR 1.2 APTT 29.6 Sodium 139 Potassium 3.9 Chloride 109 H Carbon Dioxide 24.0 Anion Gap 6 BUN 24 H Creatinine 1.26 Estim Creat Clear Calc 53.75 Est GFR (MDRD) Af Amer 71 Est GFR (MDRD) Non-Af 59 L BUN/Creatinine Ratio 19.0 Glucose 103 Lactic Acid 1.2 Calcium 8.0 L Total Bilirubin 1.00 AST 13 L ALT 16 Alkaline Phosphatase 74 Total Protein 6.7 Albumin 3.4 Globulin 3.3 Albumin/Globulin Ratio 1.0 Management Discussion w/another healthcare provider: Hospitalist (Dr. Nancy Hallman) and Seasonal Customer Service Associate (Dr. Wu, Plastics) Discharge Plan Triage Chief Complaint: Bite ED Provider: Parag Akbar Dx/Rx/DC Orders Prescriptions: No Action pantoprazole 40 mg tablet,delayed release (DR/EC) 40 mg PO DAILY pravastatin 20 mg tablet 20 mg PO .every other day Patient Comments: Half a tablet every other day. carvedilol 6.25 mg tablet 6.25 mg PO BID aspirin 81 mg capsule 81 mg PO DAILY nitroglycerin 0.4 mg Tablet, Sublingual 0.4 mg sublingual Q5M PRN (Reason: CHEST PAIN) Qty: 25 0RF Primary Care Provider: Gagan Schofield Referrals: Gagan Schofield MD [Primary Care Provider] - Print Language: Kosovan
[2024-02-22 14:39] LABS: Absolute Lymphocyte Count 0.43 X10^3/uL (0.83-4.51); Absolute Neutrophil Count 12.8 X10^3/uL (2.0-7.7); Basophil# 0.04 X10^3/uL; Basophil% 0.3 % (0-1); Eosinophil# 0.02 X10^3/uL; Eosinophils% 0.1 % (0-5); Hematocrit 36.6 % (40-54); Hemoglobin 11.8 g/dL (13.0-16.5); Lymphocyte # 0.43 X10^3/ul (0.83-4.51); Lymphocyte % 3.1 % (19-41); Mean Corp Hgb Conc 32.2 g/dL (32-36); Mean Corpuscular Hgb 29.7 pg (27.0-32.0); Mean Corpuscular Volume 92.2 fL (80-94); Mean Platelet Vol. 9.6 fl (6.2-12.0); Monocyte# 0.51 X10^3/uL; Monocyte% 3.7 % (0-10); NRBC Flagged by Analyzer 0 % (0-5); Neutrophil # 12.78 X10^3/uL (2.7-7.7); Neutrophil % 91.7 % (47-70); POSITIVE DIFFERENTIAL YES; Platelet Count 153 K/mm3 (150-450); RBC Distribution Width CV 13.1 % (11.6-14.6); RBC Distribution Width SD 43.8 fl (35.1-43.9); Red Blood Count 3.97 M/mm3 (4.6-6.2); White Blood Count 13.9 K/mm3 (4.4-11.0)
[2024-02-22 14:56] LABS: International Normalized Ratio 1.2; Partial Thromboplast Time 29.6 Seconds (24.1-36.2); Prothrombin Time (Protime)PT. 15.4 SECONDS (11.7-14.9)
[2024-02-22 15:23] LABS: AST(SGOT) 13 U/L (15-37); Alanine Aminotransfer ALT/SGPT 16 U/L (16-61); Albumin, Serum 3.4 g/dL (3.2-5.0); Alkaline Phosphatase 74 U/L (45-117); Anion Gap 6 (5-15); BUN 24 mg/dL (7-18); Chloride 109 mmol/L (98-107); Creatinine, Serum 1.26 mg/dL (0.70-1.30); EST Glomerular Filtration Rate 59 mL/min (>60); Est Glom Filt Rate - Afr Amer 71 mL/min (>60); Estimated Creatinine Clearance 53.75 ml/min; Globulin 3.3 g/dL (2.2-4.2); Glucose 103 mg/dL (74-106); Potassium 3.9 mmol/L (3.5-5.1); Protein, Total 6.7 g/dL (6.4-8.2); Sodium Level 139 mmol/L (136-145)
[2024-02-22 15:27] LABS: Lactic Acid 1.2 mmol/L (0.4-1.9)
[2024-02-22] MEDS: Diphth,Pertuss(Acell),Tet Vac 0.5 ML Vial IM (15:45)
[2024-02-22] MEDS: Acetaminophen 325 MG Tablet 650 MG PO ×2 (15:45→19:10)
[2024-02-22] MEDS: Piperacil/Tazobactam 3.375 GM in 0.9% Normal Saline (50mL MB+) 50 ML IV ×2 (16:10→22:35)
[2024-02-22 16:15] LABS: Bacteria 0 SEEN /hpf (None Seen); Mucous, Urine 0 SEEN /hpf (<or=2+); Red Blood Cells-Urine 0 SEEN /hpf (0-5); Squamous Epithelial Cells - UA 0 SEEN /hpf (0-5); White Blood Cells 0 SEEN /hpf (0-5)
[2024-02-22 16:21] LABS: Color, Urine Yellow (Yellow); Glucose, Dipstick Normal (Normal); Ketone-Dipstick Negative (Negative); Leukocyte Esterase-Dipstick Negative /ul (Negative); Nitrite-Dipstick Negative (Negative); Occult Blood-Urine 250 /ul (Negative); Protein-Dipstick 30 mg/dl (Negative); Urine Bilirubin Dipstick Negative (Negative); Urine Clarity Sl. Cloudy (Clear); Urine Urobilinogen 1 mg/dl (Normal)
--- NOTE | 2024-02-22 16:49 | HP.PCM.HOS_ITS ---
HPI - General General Date of Admission: 02/22/24 Date of Service: 02/22/24 Chief Complaint: Cat bite to left hand HPI Narrative FORREST BALDWIN, is a 78-year-old male history of CKD, hypertension, GERD, CAD who presented to [facility] ED 02/22/2024 due to a cat bite. Sustained cat bite around 830 yesterday evening and hand has progressively become very swollen, tender, and sore. Temperatures greater than 102 in the ED white count 13.9, mildly tachycardic, otherwise stable. Plastics contacted and agreeable to see patient in consultation for usama newby. Patient evaluated with family member in the ED. He reports his Only bit his left hand yesterday evening and has had progressively more pain and swelling, feels roughly the same as it did when he first presented in the ED. Patient did note some difficulty urinating in ED and had to be straight cathed for urine sample, reports this has not been a problem in the past. ROS otherwise negative patient with no other acute or focal complaints [facility] Medical History Anemia CKD (chronic kidney disease), stage III Obesity GERD (gastroesophageal reflux disease) HLD (hyperlipidemia) HTN (hypertension) Chest pain CAD (coronary artery disease) Home Medications ?Medication ?Instructions ?Recorded ?Last Taken ?Type aspirin 81 mg capsule 81 mg PO DAILY heart health 10/08/23 10/07/23 History carvedilol 6.25 mg tablet 6.25 mg PO BID blood pressure 10/08/23 Unknown History pantoprazole 40 mg tablet,delayed 40 mg PO DAILY reflux 10/08/23 Unknown History release pravastatin 20 mg tablet 20 mg PO .every other day 10/08/23 Unknown History cholesterol Allergy/AdvReac Type Severity Reaction Status Date / Time No Known Allergies Allergy Verified 02/22/24 14:16 Family History Mother Breast cancer Father Heart disease Hypertension CAD (coronary artery disease) Valvular heart disease Surgical History S/P bilateral inguinal hernia repair History of coronary angioplasty with insertion of stent Social History household members: spouse Smoking Status: Never smoker alcohol intake: current alcohol intake frequency: a few times a month substance use type: does not use ROS ROS Narrative General: Fevers HENT: Denies headache, denies stuffy nose, denies sore throat EYES: Denies changes in vision Resp: Denies cough, denies shortness of breath Cardiac: Denies chest pain GI: Denies abdominal pain, denies changes in bowel, denies nausea/vomiting : Difficulty urinating today Extremity: Left hand swelling on the dorsum MSK: Denies weakness Neuro: Denies any numbness/tingling Heme: Denies any bleeding or bruising Skin: Erythema on left hand around bite Psychiatric: No complaints voiced Vital Signs Vital Signs Vital Signs: 02/22/24 13:21 02/22/24 15:58 02/22/24 15:58 Temperature 102.7 F H 103.2 F H Temperature Source Oral Oral Pulse Rate 104 H 110 H Respiratory Rate 16 24 H Blood Pressure 187/85 H 140/100 H Blood Pressure Mean 119 113 Pulse Ox 95 95 96 Oxygen Delivery Method Room Air Room Air Room Air 02/22/24 15:58 Temperature 103.2 F H Temperature Source Pulse Rate 110 H Respiratory Rate 24 H Blood Pressure 140/100 H Blood Pressure Mean 113 Pulse Ox 96 Oxygen Delivery Method Weight Weight: 94.347 kg Body Mass Index (BMI) 32.5 Physical Exam Narrative General: Alert, oriented, no apparent distress HEENT: Atraumatic, normocephalic Eyes: Anicteric, normal conjunctiva, extraocular movements grossly intact Neck: Supple Respiratory: Clear to auscultation bilaterally, normal respiratory effort Cardiovascular: Regular rate and rhythm GI: Soft, nontender, nondistended Extremities: Pain and swelling on dorsum of left hand Musculoskeletal: Moving all extremities Neuro: No overt focal neurological deficits Skin: Erythema on dorsum of left hand Psych: Cooperative Results Lab / Micro Data 02/22/24 14:28 02/22/24 14:28 Labs: Laboratory Results - last 24 hr 02/22/24 14:28: WBC 13.9 H, RBC 3.97 L, Hgb 11.8 L, Hct 36.6 L, MCV 92.2, MCH 29.7, MCHC 32.2, RDW Std Deviation 43.8, RDW Coeff of Arti 13.1, Plt Count 153, MPV 9.6, Immature Gran % (Auto) 1.100 H, Neut % (Auto) 91.7 H, Lymph % (Auto) 3.1 L, [place] % (Auto) 3.7, Eos % (Auto) 0.1, Baso % (Auto) 0.3, Absolute Neuts (auto) 12.8 H, Absolute Lymphs (auto) 0.43 L, Nucleated RBC % 0, PT 15.4 H, INR 1.2, APTT 29.6, Sodium 139, Potassium 3.9, Chloride 109 H, Carbon Dioxide 24.0, Anion Gap 6, BUN 24 H, Creatinine 1.26, Estim Creat Clear Calc 53.75, Est GFR (MDRD) Af Amer 71, Est GFR (MDRD) Non-Af 59 L, BUN/Creatinine Ratio 19.0, Glucose 103, Lactic Acid 1.2, Calcium 8.0 L, Total Bilirubin 1.00, AST 13 L, ALT 16, Alkaline Phosphatase 74, Total Protein 6.7, Albumin 3.4, Globulin 3.3, Albumin/Globulin Ratio 1.0 02/22/24 16:10: Urine Color Yellow, Urine Clarity Sl. Cloudy, Urine pH 6.0, Ur Specific [employer] 1.010, Urine Protein 30 H, Urine Glucose (UA) Normal, Urine Ketones Negative, Urine Occult Blood 250 H, Urine Nitrite Negative, Urine Bilirubin Negative, Urine Urobilinogen 1 H, Ur Leukocyte Esterase Negative, Urine RBC 0 SEEN, Urine WBC 0 SEEN, Ur Squamous Epith Cells 0 SEEN, Urine Bacteria 0 SEEN, Urine Mucus 0 SEEN Imaging Radiology Impression Hand X-Ray 02/22/24 14:14 IMPRESSION: Degenerative joint disease of the hand, as described above. Electronically Signed: Aleks Lambert MD at 16:12 EDT Reading Location ID and State: [address] [place] [address] , Service support , Assessment & Plan Assessment/Plan (1) Cat bite of hand: (2) Leukocytosis: (3) CAD (coronary artery disease): QUALIFIERS: Coronary Disease-Associated Artery/Lesion type: [place] artery [place] vs. transplanted heart: [place] heart Associated angina: without angina Qualified Code(s): I25.10 - Atherosclerotic heart disease of [place] coronary artery without angina pectoris PLAN: Plan # Cat bite of left hand -Elevated white blood cell count, significant pain and swelling, temperature of 102-103 in the ED -Zosyn -Hand x-ray with moderate soft tissue swelling -Plastics consult -Blood cultures ordered in ED -Pain control -OT consult -IV fluids #HTN -On carvedilol #GERD -Continue PPI # History of CAD -Stent in 2013 -Continue statin, beta-sanjeev, aspirin #Concern for urinary retention -Straight cath x 1 in ED -Will order postvoid for this evening, may need Muir placement if patient still unable to urinate or significantly retaining #DVT ppx: SCDs Nancy Hallman MD Charges/Coding Visit Charges Inpatient E&M: 23073 Init Hosp L1
--- NOTE | 2024-02-22 17:10 | NURSING ---
MED SURG BRIONES CELLULITIS, CAT BITE
[2024-02-22] MEDS: 0.9% Normal Saline (1000mL) 1,000 ML 100 ML IV (18:24)
--- NOTE | 2024-02-22 20:50 | CON.PCM.SX_ITS ---
Assessment & Plan Assessment/Plan (1) Cellulitis of left hand: PLAN: I agree with the plan for admission for IV antibiotics (agree with Zosyn for P asteurella coverage), no surgery at this time. Recommend elevation of the left upper extremity (above heart). I discussed this with the nursing staff On my exam, no concerns for MCP joint or wrist joint involvement at this time. Plastics will continue to follow and monitor the need for incision and drainage if an abscess becomes apparent throughout the course of treatment antibiotics HPI Consult Data Date of Consult: 02/22/24 HPI Narrative HPI Narrative: FORREST BALDWIN is a 78 M with past medical history CKD, CAD, HTN who was admitted today by the hospitalist team for cellulitis on the dorsum of the left hand. He reports that he was bit by a cat in two spots on the dorsum of his left hand (no palmar bites) on Friday, 20 Feb 2024 (2 days ago). He says the bites felt superficial (skin/fat only). Swelling and pain became much worse today. In the emergency department he was tachycardic, with a white blood cell count of 14,000, and temperatures to 103. Tonight on the floor, he complains of sharp severe pain in the left hand, improved by rest and elevation, and worsened by movement. His pain is from the skin, pain is not from the joints. He is up-to-date on his tetanus He is retired, but works on cars. RHD Not a current smoker [facility] Medical History Anemia CKD (chronic kidney disease), stage III Obesity GERD (gastroesophageal reflux disease) HLD (hyperlipidemia) HTN (hypertension) Chest pain CAD (coronary artery disease) Home Medications ?Medication ?Instructions ?Recorded ?Last Taken ?Type aspirin 81 mg capsule 81 mg PO DAILY heart health 10/08/23 02/22/24 08:00 History 81 mg carvedilol 6.25 mg tablet 6.25 mg PO BID blood pressure 10/08/23 02/22/24 10:00 History 6.25 mg pantoprazole 40 mg tablet,delayed 40 mg PO DAILY reflux 10/08/23 02/22/24 10:00 History release 40 mg pravastatin 20 mg tablet 20 mg PO .every other day 10/08/23 02/22/24 08:00 History cholesterol 10 mg Allergy/AdvReac Type Severity Reaction Status Date / Time No Known Allergies Allergy Verified 02/22/24 14:16 Family History Mother Breast cancer Father Heart disease Hypertension CAD (coronary artery disease) Valvular heart disease Surgical History S/P bilateral inguinal hernia repair History of coronary angioplasty with insertion of stent Social History household members: spouse Smoking Status: Never smoker alcohol intake: current alcohol intake frequency: a few times a month substance use type: does not use Medical History Anemia CKD (chronic kidney disease), stage III Obesity GERD (gastroesophageal reflux disease) HLD (hyperlipidemia) HTN (hypertension) Chest pain CAD (coronary artery disease) Surgical History S/P bilateral inguinal hernia repair History of coronary angioplasty with insertion of stent Family History Mother Breast cancer Father Heart disease Hypertension CAD (coronary artery disease) Valvular heart disease Social History household members: spouse Smoking Status: Never smoker alcohol intake: current alcohol intake frequency: a few times a month substance use type: does not use ROS ROS Narrative ROS completed. Positive for what was noted above in the HPI Physical Exam Narrative Left Upper Extremity Dorsal soft tissue swelling diffusely, no volar/palmar involvement . Two small puncture wounds on the dorsum of the hand, one at the base and middle of the hand, another just ulnar and proximal to the index finger MCP. TTP on the dorsum of the hand. Streaking erythema along forearm, but no lymphadenopathy on the left elbow. NO PAIN with axial loading of the left index finger (LIF) MCP joint (no pain in the joint). No pain with axial loading of the wrist or with wrist ROM. No fluid collections Motor: Making of a fist limited 2/2 swelling, but he can bend and extend all MCP, PIP, and DIP joints. Sensory: intact to light touch Vascular: hand warm and well perfused. Const oriented x3 General Appearance: cooperative HEENT normocephalic Eyes EOMs intact bilaterally Cardio Rate: tachycardic GI non-distended Lab / Micro Data 02/22/24 14:28 02/22/24 14:28 Labs: Laboratory Results - last 24 hr 02/22/24 14:28: WBC 13.9 H, RBC 3.97 L, Hgb 11.8 L, Hct 36.6 L, MCV 92.2, MCH 29.7, MCHC 32.2, RDW Std Deviation 43.8, RDW Coeff of Arti 13.1, Plt Count 153, MPV 9.6, Immature Gran % (Auto) 1.100 H, Neut % (Auto) 91.7 H, Lymph % (Auto) 3.1 L, [place] % (Auto) 3.7, Eos % (Auto) 0.1, Baso % (Auto) 0.3, Absolute Neuts (auto) 12.8 H, Absolute Lymphs (auto) 0.43 L, Nucleated RBC % 0, PT 15.4 H, INR 1.2, APTT 29.6, Sodium 139, Potassium 3.9, Chloride 109 H, Carbon Dioxide 24.0, Anion Gap 6, BUN 24 H, Creatinine 1.26, Estim Creat Clear Calc 53.75, Est GFR (MDRD) Af Amer 71, Est GFR (MDRD) Non-Af 59 L, BUN/Creatinine Ratio 19.0, Glucose 103, Lactic Acid 1.2, Calcium 8.0 L, Total Bilirubin 1.00, AST 13 L, ALT 16, Alkaline Phosphatase 74, Total Protein 6.7, Albumin 3.4, Globulin 3.3, Albumin/Globulin Ratio 1.0 02/22/24 16:10: Urine Color Yellow, Urine Clarity Sl. Cloudy, Urine pH 6.0, Ur Specific [place] 1.010, Urine Protein 30 H, Urine Glucose (UA) Normal, Urine Ketones Negative, Urine Occult Blood 250 H, Urine Nitrite Negative, Urine Bilirubin Negative, Urine Urobilinogen 1 H, Ur Leukocyte Esterase Negative, Urine RBC 0 SEEN, Urine WBC 0 SEEN, Ur Squamous Epith Cells 0 SEEN, Urine Bacteria 0 SEEN, Urine Mucus 0 SEEN Imaging Radiology Impression I personally reviewed the x-ray from today. No foreign bodies in the area of the bite and no fractures. Soft tissue swelling on the dorsum Hand X-Ray 02/22/24 14:14 IMPRESSION: Degenerative joint disease of the hand, as described above. Electronically Signed: Aleks Lambert MD at 16:12 EDT , Charges/Coding Visit Charges Office Visits / Consults: 63277 IP Consult L4 (I reviewed imaging and saw and examined the patient personally. I spent 60 minutes on this consult reviewing PMHx, collecting information from the patient, examining him, reviewing the xray, and making decisions.) Vital Signs Temperature Temperature: 99.2 F Pulse Pulse Rate: 101 Respirations Respiratory Rate: 16 Pulse Oximetry: 95 Oxygen Delivery Method: Room Air Blood Pressure Blood Pressure: 109/60 Blood Pressure Mean: 76 Patient Allergies Allergies Allergies: Allergies No Known Allergies Allergy (Verified 02/22/24 14:16) Current Medications Acetaminophen (Acetaminophen 325 Mg Tablet) 650 mg PO Q6H PRN PRN PRN Reason: Pain 1-10 Or Fever >100.7 Last Admin: 02/22/24 19:10 Dose: 650 mg Albuterol Sulfate (Albuterol 2.5 Mg/3 Ml Vial.Neb.) 2.5 mg INHALATION Q2H PRN PRN PRN Reason: SOB &/OR WHEEZING Aspirin (Aspirin 81 Mg Tab.Chew) 81 mg PO DAILYCM [facility] Carvedilol (Carvedilol 6.25 Mg Tablet) 6.25 mg PO BID [facility]; Protocol Sodium Chloride () 1,000 mls @ 100 mls/hr IV .Q10H ANGELITO Stop: 02/23/24 13:55 Last Admin: 02/22/24 18:24 Dose: 100 mls/hr Piperacillin Sod/Tazobactam (Sod 3.375 gm/ Sodium Chloride) 50 mls @ 12.5 mls/hr IV Q8 ANGELITO Sodium Chloride () 250 mls @ 15 mls/hr IV .[id number] PRN PRN Reason: Additional IVPB Infusion Sodium Chloride () 250 mls @ 15 mls/hr IV .[id number] PRN PRN Reason: Saline Flush Melatonin (Melatonin 3 Mg Tablet) 3 mg PO QHS PRN PRN PRN Reason: INSOMNIA Morphine Sulfate (Morphine 2 Mg/Ml Syringe) 2 - 4 mg IV Q3H PRN PRN PRN Reason: Pain Score 6-10 Morphine Sulfate (Morphine 4 Mg/Ml Syringe) 2 - 4 mg IV Q3H PRN PRN PRN Reason: Pain Score 6-10 Ondansetron HCl (Ondansetron 4 Mg/2 Ml Vial) 4 mg IV Q8H PRN PRN PRN Reason: NAUSEA/VOMITING Oxycodone HCl (Oxycodone 5 Mg Tablet) 5 mg PO Q4H PRN PRN PRN Reason: Pain Score 4-10 Pantoprazole Sodium (Pantoprazole Sodium 40 Mg Tablet) 40 mg PO DAILY ANGELITO Pravastatin Sodium (Pravastatin 20 Mg Tablet) 20 mg PO QODAY@2200 ANGELITO Senna/Docusate Sodium (Senna/Docusate Sodium 1 Tablet) 2 tablet PO BID PRN PRN PRN Reason: Constipation Sodium Chloride (0.9% Saline Lock 10 Ml Syringe) 10 - 40 ml IV UD PRN PRN Reason: SALINE FLUSH
[2024-02-22] MEDS: Carvedilol 6.25 MG Tablet PO (22:35)
[2024-02-23] MEDS: 0.9% Normal Saline (1000mL) 1,000 ML 100 ML IV (04:43)
[2024-02-23 05:00] VITALS: BP 112/67; PULSE 88; RESP 16; TEMP 36.6; O2SAT 95
[2024-02-23] MEDS: Piperacil/Tazobactam 3.375 GM in 0.9% Normal Saline (50mL MB+) 50 ML IV ×3 (05:29→20:04)
[2024-02-23 07:00] LABS: Absolute Lymphocyte Count 0.89 X10^3/uL (0.83-4.51); Absolute Neutrophil Count 14.4 X10^3/uL (2.0-7.7); Basophil# 0.06 X10^3/uL; Basophil% 0.4 % (0-1); Hemoglobin 11.1 g/dL (13.0-16.5); Lymphocyte # 0.89 X10^3/ul (0.83-4.51); Lymphocyte % 5.4 % (19-41); Mean Corp Hgb Conc 31.7 g/dL (32-36); Mean Corpuscular Hgb 29.7 pg (27.0-32.0); Mean Corpuscular Volume 93.6 fL (80-94); Mean Platelet Vol. 9.9 fl (6.2-12.0); Monocyte# 0.78 X10^3/uL; Monocyte% 4.8 % (0-10); NRBC Flagged by Analyzer 0 % (0-5); Neutrophil # 14.42 X10^3/uL (2.7-7.7); Neutrophil % 88.2 % (47-70); Platelet Count 119 K/mm3 (150-450); RBC Distribution Width CV 13.4 % (11.6-14.6); RBC Distribution Width SD 45.9 fl (35.1-43.9); Red Blood Count 3.74 M/mm3 (4.6-6.2); White Blood Count 16.3 K/mm3 (4.4-11.0)
--- NOTE | 2024-02-23 07:18 | PCM.PN.HOSP ---
Reason for Visit Reason for Visit: Diagnoses Elevated white blood cell count, unspecified (02/22/24) Atherosclerotic heart disease of [place] coronary artery without angina pectoris (02/22/24) Cellulitis of left upper limb (02/22/24) Open bite of unspecified hand, initial encounter (02/22/24) Bitten by cat, initial encounter (02/22/24) Objective Data Objective Data Vital Signs: Vital Signs Temp Pulse Resp BP Pulse Ox O2 Del Method 98 F 88 16 112/67 95 Room Air 02/23/24 05:00 02/23/24 05:00 02/23/24 05:00 02/23/24 05:00 02/23/24 05:00 02/23/24 05:00 Oxygen Delivery Method Room Air Weight: 202 lb 13.204 oz Body Mass Index (BMI) 31.7 Intake & Output: Intake and Output for Last 24 Hours 02/21/24 02/22/24 02/23/24 23:59 23:59 23:59 Intake Total 50 / 50 1050 / 1050 Balance 50 / 50 1050 / 1050 Lab / Micro Data 02/23/24 06:50 02/23/24 06:50 Labs: Laboratory Results - last 24 hr 02/22/24 14:28: WBC 13.9 H, RBC 3.97 L, Hgb 11.8 L, Hct 36.6 L, MCV 92.2, MCH 29.7, MCHC 32.2, RDW Std Deviation 43.8, RDW Coeff of Arti 13.1, Plt Count 153, MPV 9.6, Immature Gran % (Auto) 1.100 H, Neut % (Auto) 91.7 H, Lymph % (Auto) 3.1 L, [place] % (Auto) 3.7, Eos % (Auto) 0.1, Baso % (Auto) 0.3, Absolute Neuts (auto) 12.8 H, Absolute Lymphs (auto) 0.43 L, Nucleated RBC % 0, PT 15.4 H, INR 1.2, APTT 29.6. Sodium 139, Potassium 3.9, Chloride 109 H, Carbon Dioxide 24.0, Anion Gap 6, BUN 24 H, Creatinine 1.26, Estim Creat Clear Calc 53.75, Est GFR (MDRD) Af Amer 71, Est GFR (MDRD) Non-Af 59 L, BUN/Creatinine Ratio 19.0, Glucose 103, Lactic Acid 1.2, Calcium 8.0 L, Total Bilirubin 1.00, AST 13 L, ALT 16, Alkaline Phosphatase 74, Total Protein 6.7, Albumin 3.4, Globulin 3.3, Albumin/Globulin Ratio 1.0 02/22/24 16:10: Urine Color Yellow, Urine Clarity Sl. Cloudy, Urine pH 6.0, Ur Specific [place] 1.010, Urine Protein 30 H, Urine Glucose (UA) Normal, Urine Ketones Negative, Urine Occult Blood 250 H, Urine Nitrite Negative, Urine Bilirubin Negative, Urine Urobilinogen 1 H, Ur Leukocyte Esterase Negative, Urine RBC 0 SEEN, Urine WBC 0 SEEN, Ur Squamous Epith Cells 0 SEEN, Urine Bacteria 0 SEEN, Urine Mucus 0 SEEN 02/23/24 06:50: WBC 16.3 H, RBC 3.74 L, Hgb 11.1 L, Hct 35.0 L, MCV 93.6, MCH 29.7, MCHC 31.7 L, RDW Std Deviation 45.9 H, RDW Coeff of Arti 13.4, Plt Count 119 L, MPV 9.9, Immature Gran % (Auto) 1.200 H, Neut % (Auto) 88.2 H, Lymph % (Auto) 5.4 L, [place] % (Auto) 4.8, Eos % (Auto) 0.0, Baso % (Auto) 0.4, Absolute Neuts (auto) 14.4 H, Absolute Lymphs (auto) 0.89, Nucleated RBC % 0 Micro: Microbiology 02/22/24 14:28 Blood Culture (Wb) - Arm Left Blood Culture - Preliminary Radiography Diagnostic Testing: Radiology Impression Hand X-Ray 02/22/24 14:14 IMPRESSION: Degenerative joint disease of the hand, as described above. Electronically Signed: Aleks Lambert MD at 16:12 EDT Reading Location ID and State: [facility] / [place] , Service support , Physical Exam Narrative Seen and examined. Patient stated that the cat was upset and she scratched aggressive and bit on the left hand. Hand swelling is better than yesterday. Physical exam General: Alert, Oriented x3, Cooperative HEENT: Atraumatic, PERRLA, EOMI, Normocephalic Oral: No Gingival or Mucosal Lesions/ Ulcerations Neck: Supple, No JVD, Negative Carotid Bruits Chest wall/Lungs: Air entry diminished in bilateral lung bases. No crepitation/rhonchi Cardiovascular: Regular rate, Regular Rhythm, Normal S1, Normal S2, No M/G/R Abdomen: Bowel Sounds Present, Soft, Non Tender, Non-Distended : No dysuria. No renal angle tenderness. No suprapubic tenderness. Extremities: No edema, Capillary Refill Less than 3 Seconds Skin: Left hand and forearm under dressing. Swelling is overall better. Erythema and swelling, pain and tenderness over left hand. Musculoskeletal: Tenderness present over left hand and forearm region. Neurological: Cranial nerves II-XII grossly intact, DTR 2+/4. No acute focal neurological deficit. Psych/Mental Status: Normal Affect, Appropriate. Assessment & Plan Assessment/Plan (1) Cat bite of hand: (2) Leukocytosis: (3) CAD (coronary artery disease): QUALIFIERS: Associated angina: without angina Coronary Disease-Associated Artery/Lesion type: [place] artery [place] vs. transplanted heart: [place] heart Qualified Code(s): I25.10 - Atherosclerotic heart disease of [place] coronary artery without angina pectoris PLAN: Plan 78-year-old gentleman was admitted with cat bite around 8:30 PM on the day before admission which got progressively very swollen, tender red and painful, temperature of 102-103 in the ED and leukocytosis # Cat bite of left hand -Continue IV Zosyn. Evaluated by plastic surgeon. No fever overnight. Hand has only swollen but pain is better. Punch biopsy 5 mm around 2 bites on the dorsum of hand was done, culture was sent. Soak in warm soapy water to allow the infection to egress. -Hand x-ray with moderate soft tissue swelling. -Prelim blood culture shows aerobic gram-negative rods. Gram stain shows 4+ RBCs but no organism. -Pain control -OT consult -IV fluids #HTN -On carvedilol #GERD -Continue PPI # History of CAD -Stent in 2013 -Continue statin, beta-sanjeev, aspirin #Concern for urinary retention -Straight cath x 1 in ED Patient voided 2 times large and one-time incontinence. Continue postvoid check and if retention will need straight/Muir catheter. #DVT ppx: SCDs Mild thrombocytopenia. Platelet count was 1 57-1 65,000 in September 2023. Dropped to 119,000. Started on Lovenox, 40 mg subcu daily with holding parameters Charges/Coding Visit Charges Inpatient E&M: 46361 Subs Hosp L2
[2024-02-23 07:35] LABS: ALB/GLOB Ratio 0.9 RATIO (0.9-2.4); AST(SGOT) 10 U/L (15-37); Alanine Aminotransfer ALT/SGPT 12 U/L (16-61); Albumin, Serum 2.8 g/dL (3.2-5.0); Alkaline Phosphatase 61 U/L (45-117); Anion Gap 7 (5-15); BUN 27 mg/dL (7-18); BUN/Creat Ratio 20.3 RATIO (10-20); Calcium,Total 7.7 mg/dL (8.5-10.1); Chloride 109 mmol/L (98-107); Creatinine, Serum 1.33 mg/dL (0.70-1.30); EST Glomerular Filtration Rate 55 mL/min (>60); Est Glom Filt Rate - Afr Amer 67 mL/min (>60); Globulin 3.2 g/dL (2.2-4.2); Glucose 108 mg/dL (74-106); Magnesium 1.8 mg/dL (1.6-2.6); Potassium 3.7 mmol/L (3.5-5.1); Sodium Level 142 mmol/L (136-145)
--- NOTE | 2024-02-23 07:38 | PCM.PN.SRG ---
Subjective Subjective No malaise or chills this morning. Still feels a lot of pain in the left hand/forearm today on the dorsum. No pain in the wrist/MP joints, though. Objective Data Objective Data Vital Signs: Vital Signs Temp Pulse Resp BP Pulse Ox O2 Del Method 98 F 88 16 112/67 95 Room Air 02/23/24 05:00 02/23/24 05:00 02/23/24 05:00 02/23/24 05:00 02/23/24 05:00 02/23/24 05:00 Oxygen Delivery Method Room Air Weight: 202 lb 13.204 oz Body Mass Index (BMI) 31.7 Intake & Output: Intake and Output for Last 24 Hours 02/21/24 02/22/24 02/23/24 23:59 23:59 23:59 Intake Total 50 / 50 1050 / 1050 Balance 50 / 50 1050 / 1050 Lab / Micro Data 02/23/24 06:50 02/23/24 06:50 Labs: Laboratory Results - last 24 hr 02/22/24 14:28: WBC 13.9 H, RBC 3.97 L, Hgb 11.8 L, Hct 36.6 L, MCV 92.2, MCH 29.7, MCHC 32.2, RDW Std Deviation 43.8, RDW Coeff of Arti 13.1, Plt Count 153, MPV 9.6, Immature Gran % (Auto) 1.100 H, Neut % (Auto) 91.7 H, Lymph % (Auto) 3.1 L, [place] % (Auto) 3.7, Eos % (Auto) 0.1, Baso % (Auto) 0.3, Absolute Neuts (auto) 12.8 H, Absolute Lymphs (auto) 0.43 L, Nucleated RBC % 0, PT 15.4 H, INR 1.2, APTT 29.6, Sodium 139, Potassium 3.9, Chloride 109 H, Carbon Dioxide 24.0, Anion Gap 6, BUN 24 H, Creatinine 1.26, Estim Creat Clear Calc 53.75, Est GFR (MDRD) Af Amer 71, Est GFR (MDRD) Non-Af 59 L, BUN/Creatinine Ratio 19.0, Glucose 103, Lactic Acid 1.2, Calcium 8.0 L, Total Bilirubin 1.00, AST 13 L, ALT 16, Alkaline Phosphatase 74, Total Protein 6.7, Albumin 3.4, Globulin 3.3, Albumin/Globulin Ratio 1.0 02/22/24 16:10: Urine Color Yellow, Urine Clarity Sl. Cloudy, Urine pH 6.0, Ur Specific [place] 1.010, Urine Protein 30 H, Urine Glucose (UA) Normal, Urine Ketones Negative, Urine Occult Blood 250 H, Urine Nitrite Negative, Urine Bilirubin Negative, Urine Urobilinogen 1 H, Ur Leukocyte Esterase Negative, Urine RBC 0 SEEN, Urine WBC 0 SEEN, Ur Squamous Epith Cells 0 SEEN, Urine Bacteria 0 SEEN, Urine Mucus 0 SEEN 02/23/24 06:50: WBC 16.3 H, RBC 3.74 L, Hgb 11.1 L, Hct 35.0 L, MCV 93.6, MCH 29.7, MCHC 31.7 L, RDW Std Deviation 45.9 H, RDW Coeff of Arti 13.4, Plt Count 119 L, MPV 9.9, Immature Gran % (Auto) 1.200 H, Neut % (Auto) 88.2 H, Lymph % (Auto) 5.4 L, [place] % (Auto) 4.8, Eos % (Auto) 0.0, Baso % (Auto) 0.4, Absolute Neuts (auto) 14.4 H, Absolute Lymphs (auto) 0.89, Nucleated RBC % 0, Sodium 142, Potassium 3.7, Chloride 109 H, Carbon Dioxide 26.0, Anion Gap 7, BUN 27 H, Creatinine 1.33 H, Estim Creat Clear Calc 50.30, Est GFR (MDRD) Af Amer 67, Est GFR (MDRD) Non-Af 55 L, BUN/Creatinine Ratio 20.3 H, Glucose 108 H, Calcium 7.7 L, Magnesium 1.8, Total Bilirubin 1.80 H, AST 10 L, ALT 12 L, Alkaline Phosphatase 61, Total Protein 6.0 L, Albumin 2.8 L, Globulin 3.2, Albumin/Globulin Ratio 0.9 Micro: Microbiology 02/22/24 14:28 Blood Culture (Wb) - Arm Left Blood Culture - Preliminary Radiography Diagnostic Testing: Radiology Impression Hand X-Ray 02/22/24 14:14 IMPRESSION: Degenerative joint disease of the hand, as described above. Electronically Signed: Aleks Lambert MD at 16:12 EDT Reading Location ID and State: [address] [place] [address] , Service support , Physical Exam Narrative Left Upper Extremity Dorsal soft tissue swelling diffusely, no volar/palmar involvement . Two small puncture wounds on the dorsum of the hand, one at the base and middle of the hand, another just ulnar and proximal to the index finger MCP. TTP on the dorsum of the hand. Streaking erythema along forearm and now the medial arm. NO PAIN with axial loading of the left index finger (LIF) MCP joint (no pain in the joint). No pain with axial loading of the wrist or with wrist ROM (no pain in the wrist joint). No fluid collections Motor: Making of a fist limited 2/2 swelling, but he can bend and extend all MCP, PIP, and DIP joints. Sensory: intact to light touch Vascular: hand warm and well perfused. Assessment & Plan Assessment/Plan (1) Cellulitis of left hand: PLAN: Patient with rising WBC and increase in erythema today (medial arm streaking erythema is worse). On the floor this morning, I obtained consent and performed a time out to do a punch biopsy (5mm) around the two bites on the dorsum of his hand to open them up. I got a culture and sent it. I got him soaking in warm, soapy water, to allow the infection on the dorsum of the hand a path to egress. Plan for TID soap soaks (ordered) Elevation of the LUE f/u cultures Continue IV antibiotics OK for diet Plastics will follow Charges/Coding Visit Charges Inpatient E&M: 94274 Subs Hosp L3 (I spent 80 minutes reviewing patient data, examining the patient, and deciding on an intervention. I performed a bedside punch biopsy of the two puncture wounds from the cat bite for cultures and for soaks. ) Vital Signs Temperature Temperature: 98 F Pulse Pulse Rate: 88 Respirations Respiratory Rate: 16 Pulse Oximetry: 95 Oxygen Delivery Method: Room Air Blood Pressure Blood Pressure: 112/67 Blood Pressure Mean: 82 Focused Labs Anesthesia Preop lab: CBC WBC 16.3 K/mm3 (4.4-11.0) H 02/23/24 06:50 RBC 3.74 M/mm3 (4.6-6.2) L 02/23/24 06:50 Hgb 11.1 g/dL (13.0-16.5) L 02/23/24 06:50 Hct 35.0 % (40-54) L 02/23/24 06:50 Plt Count 119 K/mm3 (150-450) L 02/23/24 06:50 CHEMISTRY Potassium 3.7 mmol/L (3.5-5.1) 02/23/24 06:50 Sodium 142 mmol/L (136-145) 02/23/24 06:50 Magnesium 1.8 mg/dL (1.6-2.6) 02/23/24 06:50 BUN 27 mg/dL (7-18) H 02/23/24 06:50 Creatinine 1.33 mg/dL (0.70-1.30) H 02/23/24 06:50 Glucose 108 mg/dL (74-106) H 02/23/24 06:50 COAG PT 15.4 SECONDS (11.7-14.9) H 02/22/24 14:28
[2024-02-23 07:44] VITALS: BP 112/67; PULSE 88; RESP 16; TEMP 36.6; O2SAT 95
[2024-02-23 08:23] VITALS: BP 135/67; PULSE 85; RESP 18; TEMP 37.4; O2SAT 97
--- NOTE | 2024-02-23 08:25 | NURSING ---
temp confirmed by oral temp 100.0, pt denies feeling febrile
[2024-02-23] MEDS: Aspirin 81 MG TAB.CHEW PO (08:37)
[2024-02-23] MEDS: Carvedilol 6.25 MG Tablet PO ×2 (09:57→20:04)
[2024-02-23] MEDS: Pantoprazole Sodium 40 MG Tablet PO (09:57)
--- NOTE | 2024-02-23 12:21 | CASEMGMT ---
RN CM Face to Face with patient for initial transition planning/care coordination assessment. RN CM introduced self and role at [facility]. Patient lying in bed, alert and oriented. Patient willing to participate in assessment and is able to answer all questions appropriately. Care providers, pharmacy, and demographics verified. PCP: Kanwal Specialists: Robin Facility Sales And Admin Preferred Pharmacy: [facility] Insurance: [facility], [facility] Prescription Benefit: Yes LNOK: Living Arrangements: Pt lives with in a bi-level home with 2+5 steps to enter. Pt states I with ADLS and IADLS at home. Transportation: Pt drives self, denies transportation needs. DME/HHC: Denies Hx of. Patient wishes to discharge home, denies need for home health at this time. Patient states he has no further needs or concerns at this time. CM to follow for discharge planning needs that may arise. Disposition Plan: Pt goal is to go home, RN CM to follow plan of care. Tri Whelan RN, CM
[2024-02-23 14:19] VITALS: BP 135/67; PULSE 84; RESP 18; TEMP 38.3; O2SAT 97
--- NOTE | 2024-02-23 15:09 | CHAPLAIN ---
Type of Pastoral Visit _x__ Initial Visit ___ Follow-up Visit ___ On-call Visit ___ General Patient Visit ___ Spiritual Assessment ___ Family Conference ___ Bereavement ___ Rapid Response ___ Code Blue ___ Other (describe below) Pastoral Care Referral From _x__ Patient ___ Family ___ Nurse ___ Physician ___ Spinning Lathe Operator Hydraulic ___ Casing Runner ___ Other (describe below) Sacrament/Intervention _x__ Active listening ___ Anointing ___ Restoration ___ Bereavement ___ Communion ___ Fay exploration ___ _x__ Life review _x__ Prayer ___ Reconciliation ___ Sacrament of Sick ___ Supportive presence ___ Wedding ___ Other (describe below) Pastoral Comments patient relates the event that led to this admission; pt lives alone and recognizes need for hospital stay until he is better; pt mostly talks about his life and 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
[2024-02-23] MEDS: Enoxaparin 40 MG/0.4 ML Syringe SC (16:44)
[2024-02-23 20:00] VITALS: BP 135/70; PULSE 76; RESP 16; TEMP 37.2; O2SAT 95
[2024-02-23] MEDS: Acetaminophen 325 MG Tablet 650 MG PO (20:34)
[2024-02-24 03:00] VITALS: BP 141/78; PULSE 70; RESP 16; TEMP 36.9; O2SAT 99
[2024-02-24] MEDS: Piperacil/Tazobactam 3.375 GM in 0.9% Normal Saline (50mL MB+) 50 ML IV ×3 (05:54→22:03)
--- NOTE | 2024-02-24 06:41 | PN.SURG_ITS ---
Subjective Subjective Reports hand feels about the same this morning. He has been compliant with the soap soaks (three times per day). Objective Data Objective Data Vital Signs: Vital Signs Temp Pulse Resp BP Pulse Ox O2 Del Method 98.4 F 70 16 141/78 H 99 Room Air 02/24/24 03:00 02/24/24 03:00 02/24/24 03:00 02/24/24 03:00 02/24/24 03:00 02/24/24 03:00 Oxygen Delivery Method Room Air Weight: 202 lb 13.204 oz Body Mass Index (BMI) 31.7 Intake & Output: Intake and Output for Last 24 Hours 02/22/24 02/23/24 02/24/24 23:59 23:59 23:59 Intake Total 50 / 50 2670 / 2670 50 / 50 Balance 50 / 50 2670 / 2670 50 / 50 Lab / Micro Data 02/23/24 06:50 02/23/24 06:50 Labs: Laboratory Results - last 24 hr 02/23/24 06:50: WBC 16.3 H, RBC 3.74 L, Hgb 11.1 L, Hct 35.0 L, MCV 93.6, MCH 29.7, MCHC 31.7 L, RDW Std Deviation 45.9 H, RDW Coeff of Arti 13.4, Plt Count 119 L, MPV 9.9, Immature Gran % (Auto) 1.200 H, Neut % (Auto) 88.2 H, Lymph % (Auto) 5.4 L, [place] % (Auto) 4.8, Eos % (Auto) 0.0, Baso % (Auto) 0.4, Absolute Neuts (auto) 14.4 H, Absolute Lymphs (auto) 0.89, Nucleated RBC % 0, Sodium 142, Potassium 3.7, Chloride 109 H, Carbon Dioxide 26.0, Anion Gap 7, BUN 27 H, C reatinine 1.33 H, Estim Creat Clear Calc 50.30, Est GFR (MDRD) Af Amer 67, Est GFR (MDRD) Non-Af 55 L, BUN/Creatinine Ratio 20.3 H, Glucose 108 H, Calcium 7.7 L, Magnesium 1.8, Total Bilirubin 1.80 H, AST 10 L, ALT 12 L, Alkaline Phosphatase 61, Total Protein 6.0 L, Albumin 2.8 L, Globulin 3.2, Albumin/Globulin Ratio 0.9 Micro: Microbiology 02/23/24 08:00 Aspirate - Hand Gram Stain - Final 02/22/24 14:28 Blood Culture (Wb) - Arm Left Blood Culture - Preliminary Physical Exam Narrative Left Upper Extremity Dorsal soft tissue swelling diffusely, some volar/palmar involvement and redness today. Two small 5mm punch biopsy wounds to open cat bites *yesterday),which are not draining any purulence today, one at the base and middle of the hand, another just ulnar and proximal to the index finger MCP. TTP on the dorsum of the hand. Streaking erythema along forearm but arm erythema on medial side has resolved. NO PAIN with axial loading of the left index finger (LIF) MCP joint (no pain in the joint). No pain with axial loading of the wrist or with wrist ROM (no pain in the wrist joint). No fluid collections Motor: Making of a fist limited 2/2 swelling, but he can bend and extend all MCP, PIP, and DIP joints. Sensory: intact to light touch Vascular: hand warm and well perfused. Assessment & Plan Assessment/Plan (1) Cellulitis of left hand: PLAN: Slight improvement today Gram negative rods in blood cultures. Agree with continued IV antibiotics (Zosyn) F/u cultures PSU to follow. No surgical intervention at this point (OK for diet) Continue elevation of LUE (above hear) and make sure TID soap soaks continue Charges/Coding Visit Charges Inpatient E&M: 17663 Subs Hosp L1
[2024-02-24 07:00] LABS: Absolute Lymphocyte Count 0.78 X10^3/uL (0.83-4.51); Absolute Neutrophil Count 8.3 X10^3/uL (2.0-7.7); Basophil# 0.03 X10^3/uL; Basophil% 0.3 % (0-1); Eosinophil# 0.06 X10^3/uL; Eosinophils% 0.6 % (0-5); Hematocrit 33.3 % (40-54); Hemoglobin 10.4 g/dL (13.0-16.5); Lymphocyte # 0.78 X10^3/ul (0.83-4.51); Mean Corp Hgb Conc 31.2 g/dL (32-36); Mean Corpuscular Hgb 29.8 pg (27.0-32.0); Mean Corpuscular Volume 95.4 fL (80-94); Monocyte# 0.48 X10^3/uL; Monocyte% 4.9 % (0-10); NRBC Flagged by Analyzer 0 % (0-5); Neutrophil # 8.28 X10^3/uL (2.7-7.7); Neutrophil % 85.5 % (47-70); Platelet Count 109 K/mm3 (150-450); RBC Distribution Width CV 13.4 % (11.6-14.6); Red Blood Count 3.49 M/mm3 (4.6-6.2); White Blood Count 9.7 K/mm3 (4.4-11.0)
[2024-02-24 07:14] LABS: Anion Gap 4 (5-15); BUN 23 mg/dL (7-18); Calcium,Total 7.8 mg/dL (8.5-10.1); Chloride 111 mmol/L (98-107); Creatinine, Serum 1.28 mg/dL (0.70-1.30); EST Glomerular Filtration Rate 58 mL/min (>60); Est Glom Filt Rate - Afr Amer 70 mL/min (>60); Estimated Creatinine Clearance 52.27 ml/min; Glucose 101 mg/dL (74-106); Potassium 3.7 mmol/L (3.5-5.1); Sodium Level 141 mmol/L (136-145)
--- NOTE | 2024-02-24 07:52 | WOUNDNOTE ---
Nursing had already soaked hand this am and states Dr Wu was in to assess the hand. dry dressing was applied per nursing. pt tolerated well. will monitor.
[2024-02-24 08:28] VITALS: BP 158/73; PULSE 73; RESP 18; TEMP 37.1; O2SAT 98
[2024-02-24] MEDS: Aspirin 81 MG TAB.CHEW PO (08:36)
[2024-02-24] MEDS: Carvedilol 6.25 MG Tablet PO ×2 (10:46→22:04)
[2024-02-24] MEDS: Enoxaparin 40 MG/0.4 ML Syringe SC (10:46)
[2024-02-24] MEDS: Pantoprazole Sodium 40 MG Tablet PO (10:46)
--- NOTE | 2024-02-24 11:08 | CON.PCM.ID_ITS ---
Assessment & Plan Assessment/Plan (1) Cellulitis of left hand: (2) Cat bite of hand: PLAN: With associated GNR bacteremia. Surgery following, cont zosyn, overall improving. If worsens, would recommend MRI of hand. Tetanus shot if he is not up to date. Will follow, thank you (3) Bacteremia due to Gram-negative bacteria: HPI Consult Data Date of Consult: 02/24/24 HPI Narrative Reason for Consultation: bacteremia HPI Narrative: FORREST BALDWIN, is a 78 M with h/o CKD, CAD, presented 02/21 with L hand pain, swelling, redness after his cat bit him evening 02/21/24. He is R handed. Sx worsened overnight, developed fever, came to ED, admitted on zosyn, seen by plastic surgery. Feeling better, no n/v/d. Full ROS performed and neg except as noted above. [facility] Medical History Anemia CKD (chronic kidney disease), stage III Obesity GERD (gastroesophageal reflux disease) HLD (hyperlipidemia) HTN (hypertension) Chest pain CAD (coronary artery disease) Home Medications ?Medication ?Instructions ?Recorded ?Last Taken ?Type aspirin 81 mg capsule 81 mg PO DAILY heart health 10/08/23 02/22/24 08:00 History 81 mg carvedilol 6.25 mg tablet 6.25 mg PO BID blood pressure 10/08/23 02/22/24 10:00 History 6.25 mg pantoprazole 40 mg tablet,delayed 40 mg PO DAILY reflux 10/08/23 02/22/24 10:00 History release 40 mg pravastatin 20 mg tablet 20 mg PO .every other day 10/08/23 02/22/24 08:00 History cholesterol 10 mg Allergy/AdvReac Type Severity Reaction Status Date / Time No Known Allergies Allergy Verified 02/22/24 14:16 Family History Mother Breast cancer Father Heart disease Hypertension CAD (coronary artery disease) Valvular heart disease Surgical History S/P bilateral inguinal hernia repair History of coronary angioplasty with insertion of stent Social History household members: spouse Smoking Status: Never smoker alcohol intake: current alcohol intake frequency: a few times a month substance use type: does not use Physical Exam Const alert, oriented x3 and no apparent distress General Appearance: cooperative HEENT normocephalic and head/scalp atraumatic Eyes PERRL and EOMs intact bilaterally Neck supple and No nodes Resp normal air movement and clear to auscultation bilaterally Cardio regular rate and regular rhythm GI soft to palpation, non-tender and non-distended Extremity Extremity Narrative: No edema in BLE Skin Skin Narrative: R hand wrapped, some redness and swelling, dressing is dry. Neuro CN's II-XII intact bilaterally Lab / Micro Data Attestation: I reviewed the patient's lab results. 02/24/24 06:26 02/24/24 06:26 Labs: Laboratory Results - last 24 hr 02/24/24 06:26: WBC 9.7, RBC 3.49 L, Hgb 10.4 L, Hct 33.3 L, MCV 95.4 H, MCH 29.8, MCHC 31.2 L, RDW Std Deviation 47.0 H, RDW Coeff of Arti 13.4, Plt Count 109 L, MPV 10.0, Immature Gran % (Auto) 0.700, Neut % (Auto) 85.5 H, Lymph % (Auto) 8.0 L, [place] % (Auto) 4.9, Eos % (Auto) 0.6, Baso % (Auto) 0.3, Absolute Neuts (auto) 8.3 H, Absolute Lymphs (auto) 0.78 L, Nucleated RBC % 0, Sodium 141, Potassium 3.7, Chloride 111 H, Carbon Dioxide 26.0, Anion Gap 4 L, BUN 23 H , Creatinine 1.28, Estim Creat Clear Calc 52.27, Est GFR (MDRD) Af Amer 70, Est GFR (MDRD) Non-Af 58 L, BUN/Creatinine Ratio 18.0, Glucose 101, Calcium 7.8 L Micro: Microbiology 02/23/24 08:00 Aspirate - Hand Gram Stain - Final 02/23/24 08:00 Aspirate - Hand Wound Culture - Preliminary Gram negative jennifer 02/22/24 14:28 Blood Culture (Wb) - Arm Left Blood Culture - Preliminary Gram negative jennifer 02/22/24 16:10 Urine, Catheterized Urine Culture - Preliminary Culture exhibits no growth.
--- NOTE | 2024-02-24 12:50 | CASEMGMT ---
Discharge Planning A list of HH providers including quality and resource use data and consistent with the patient's preferred geographic region, medical needs, and insurance network was created in [employer] Guide.? This list was provided to the RN LUCY. Jaimie Fox, Discharge Planning Asst.
--- NOTE | 2024-02-24 13:25 | CASEMGMT ---
Addendum entered by Tri Whelan 02/24/24 15:27: BRUCE AYALA into pt room to discuss HHC agencies, pt stated [facility] choice and [facility]. Denies additional questions or concerns at this time. BRUCE AYALA called [facility] to see if willing to accept for SN and OT. Waiting to hear if able to accept. Original Note: Discharge policy and planning manager provided list of HHC agencies covered by pt insurance. BRUCE AYALA into pt room, pt lying in bed in no distress. Discussed HHC options with pt, left list of local HHC companies with pt to review. Pt follow up with pt on agency of choice. Discussed possible IV antibiotics with pt, provided list of local agencies to deliver home antibiotics. If pt needs IV antibiotics at ID, Pt chose [facility] as agency of choice.
[2024-02-24 13:33] VITALS: BP 151/76; PULSE 79; RESP 18; TEMP 36.8; O2SAT 96
[2024-02-24 13:34] VITALS: BP 151/76; PULSE 75; RESP 18; TEMP 36.8; O2SAT 97
--- NOTE | 2024-02-24 14:17 | PCM.PN.HOSP ---
Reason for Visit Reason for Visit: Diagnoses Elevated white blood cell count, unspecified (02/22/24) Atherosclerotic heart disease of [place] coronary artery without angina pectoris (02/22/24) Cellulitis of left upper limb (02/22/24) Bacteremia (02/22/24) Open bite of unspecified hand, initial encounter (02/22/24) Bitten by cat, initial encounter (02/22/24) Objective Data Objective Data Vital Signs: Vital Signs Temp Pulse Resp BP Pulse Ox O2 Del Method 98.3 F 75 18 151/76 H 97 Room Air 02/24/24 13:34 02/24/24 13:34 02/24/24 13:34 02/24/24 13:34 02/24/24 13:34 02/24/24 13:34 Oxygen Delivery Method Room Air Weight: 202 lb 13.204 oz Body Mass Index (BMI) 31.7 Intake & Output: Intake and Output for Last 24 Hours 02/22/24 02/23/24 02/24/24 23:59 23:59 23:59 Intake Total 50 / 50 2670 / 2670 500 / 500 Balance 50 / 50 2670 / 2670 500 / 500 Lab / Micro Data 02/24/24 06:26 02/24/24 06:26 Labs: Laboratory Results - last 24 hr 02/24/24 06:26: WBC 9.7, RBC 3.49 L, Hgb 10.4 L, Hct 33.3 L, MCV 95.4 H, MCH 29.8, MCHC 31.2 L, RDW Std Deviation 47.0 H, RDW Coeff of Arti 13.4, Plt Count 109 L, MPV 10.0, Immature Gran % (Auto) 0.700, Neut % (Auto) 85.5 H, Lymph % (Auto) 8.0 L, [place] % (Auto) 4.9, Eos % (Auto) 0.6, Baso % (Auto) 0.3, Absolute Neuts (auto) 8.3 H, Absolute Lymphs (auto) 0.78 L, Nucleated RBC % 0, Sodium 141, Potassium 3.7, Chloride 111 H, Carbon Dioxide 26.0, Anion Gap 4 L, BUN 23 H, Creatinine 1.28, Estim Creat Clear Calc 52.27, Est GFR (MDRD) Af Amer 70, Est GFR (MDRD) Non-Af 58 L, BUN/Creatinine Ratio 18.0, Glucose 101, Calcium 7.8 L Micro: Microbiology 02/23/24 08:00 Aspirate - Hand Gram Stain - Final 02/23/24 08:00 Aspirate - Hand Wound Culture - Preliminary Gram negative jennifer 02/22/24 14:28 Blood Culture (Wb) - Arm Left Blood Culture - Preliminary Gram negative jennifer 02/22/24 16:10 Urine, Catheterized Urine Culture - Preliminary Culture exhibits no growth. Physical Exam Narrative Seen and examined. No fever. Patient able to flex his fingers feels swelling is better Patient stated that the cat was upset and she scratched aggressive and bit on the left hand. Patient is right-handed. Physical exam General: Alert, Oriented x3, Cooperative HEENT: Atraumatic, PERRLA, EOMI, Normocephalic Oral: No Gingival or Mucosal Lesions/ Ulcerations Neck: Supple, No JVD, Negative Carotid Bruits Chest wall/Lungs: Air entry diminished in bilateral lung bases. No crepitation/rhonchi Cardiovascular: Regular rate, Regular Rhythm, Normal S1, Normal S2, No M/G/R Abdomen: Bowel Sounds Present, Soft, Non Tender, Non-Distended : No dysuria. No renal angle tenderness. No suprapubic tenderness. Extremities: No edema, Capillary Refill Less than 3 Seconds Skin: Left hand and forearm under dressing. Swelling is overall better. Erythema and swelling, pain and tenderness over left hand are improved. Musculoskeletal: Tenderness present over left hand and forearm region. Neurological: Cranial nerves II-XII grossly intact, DTR 2+/4. No acute focal neurological deficit. Psych/Mental Status: Normal Affect, Appropriate. Assessment & Plan Assessment/Plan (1) Cat bite of hand: (2) Leukocytosis: (3) CAD (coronary artery disease): QUALIFIERS: Coronary Disease-Associated Artery/Lesion type: [place] artery [place] vs. transplanted heart: [place] heart Associated angina: without angina Qualified Code(s): I25.10 - Atherosclerotic heart disease of [place] coronary artery without angina pectoris PLAN: Plan 78-year-old gentleman was admitted with cat bite around 8:30 PM on the day before admission which got progressively very swollen, tender red and painful, temperature of 102-103 in the ED and leukocytosis # Cat bite of left hand -Continue IV Zosyn. Evaluated by plastic surgeon. No fever overnight. Hand has only swollen but pain is better. Punch biopsy 5 mm around 2 bites on the dorsum of hand was done, culture was sent. Soak in warm soapy water to allow the infection to egress. -Hand x-ray with moderate soft tissue swelling. -Prelim blood culture shows aerobic gram-negative rods. Gram stain shows 4+ RBCs but no organism. -Pain control -OT consult -IV fluids 02/22: ID consult requested, reviewed and appreciated. Continue IV Zosyn. Tetanus shot if he did not had last 10 years. Suspicion of Pasteurella. #HTN -On carvedilol #GERD -Continue PPI # History of CAD -Stent in 2013 -Continue statin, beta-sanjeev, aspirin #Concern for urinary retention -Straight cath x 1 in ED Patient voided 2 times large and one-time incontinence. Continue postvoid check and if retention will need straight/Muir catheter. #DVT ppx: SCDs Mild thrombocytopenia. Platelet count was 1 57-1 65,000 in September 2023. Dropped to 119,000. Started on Lovenox, 40 mg subcu daily with holding parameters Charges/Coding Visit Charges Inpatient E&M: 94362 Subs Hosp L2
[2024-02-24 22:00] VITALS: BP 117/82; PULSE 72; RESP 16; TEMP 37.1; O2SAT 98
[2024-02-24] MEDS: Pravastatin 20 MG Tablet PO (22:04)
[2024-02-25 02:41] VITALS: BP 122/63; PULSE 73; RESP 18; TEMP 37; O2SAT 98
[2024-02-25] MEDS: Piperacil/Tazobactam 3.375 GM in 0.9% Normal Saline (50mL MB+) 50 ML IV (06:01)
[2024-02-25 06:05] LABS: Absolute Neutrophil Count 5.3 X10^3/uL (2.0-7.7); Basophil# 0.01 X10^3/uL; Basophil% 0.2 % (0-1); Eosinophil# 0.06 X10^3/uL; Eosinophils% 0.9 % (0-5); Hematocrit 33.1 % (40-54); Hemoglobin 10.3 g/dL (13.0-16.5); Lymphocyte % 9.5 % (19-41); Mean Corp Hgb Conc 31.1 g/dL (32-36); Mean Corpuscular Hgb 29.6 pg (27.0-32.0); Mean Corpuscular Volume 95.1 fL (80-94); Mean Platelet Vol. 10.4 fl (6.2-12.0); Monocyte# 0.37 X10^3/uL; Monocyte% 5.8 % (0-10); NRBC Flagged by Analyzer 0 % (0-5); Neutrophil # 5.26 X10^3/uL (2.7-7.7); POSITIVE DIFFERENTIAL YES; Platelet Count 132 K/mm3 (150-450); RBC Distribution Width CV 13.2 % (11.6-14.6); RBC Distribution Width SD 46.1 fl (35.1-43.9); Red Blood Count 3.48 M/mm3 (4.6-6.2); White Blood Count 6.3 K/mm3 (4.4-11.0)
--- NOTE | 2024-02-25 06:28 | PN.SURG_ITS ---
Subjective Subjective Persistent pain in the left hand. He's been compliant with elevation of the left hand and the soaks. One episode of confusion last night, but was reoriented by nursing and is now A&O x 4 Objective Data Objective Data Vital Signs: Vital Signs Temp Pulse Resp BP Pulse Ox O2 Del Method 98.6 F 73 18 122/63 H 98 Room Air 02/25/24 02:41 02/25/24 02:41 02/25/24 02:41 02/25/24 02:41 02/25/24 02:41 02/25/24 02:41 Oxygen Delivery Method Room Air Weight: 202 lb 13.204 oz Body Mass Index (BMI) 31.7 Intake & Output: Intake and Output for Last 24 Hours 02/23/24 02/24/24 02/25/24 23:59 23:59 23:59 Intake Total 2670 / 2670 850 / 850 50 / 50 Balance 2670 / 2670 850 / 850 50 / 50 Lab / Micro Data 02/25/24 05:37 02/25/24 05:37 Labs: Laboratory Results - last 24 hr 02/24/24 06:26: WBC 9.7, RBC 3.49 L, Hgb 10.4 L, Hct 33.3 L, MCV 95.4 H, MCH 29.8, MCHC 31.2 L, RDW Std Deviation 47.0 H, RDW Coeff of Arti 13.4, Plt Count 109 L, MPV 10.0, Immature Gran % (Auto) 0.700, Neut % (Auto) 85.5 H, Lymph % (Auto) 8.0 L, [place] % (Auto) 4.9, Eos % (Auto) 0.6, Baso % (Auto) 0.3, Absolute Neuts (auto) 8.3 H, Absolute Lymphs (auto) 0.78 L, Nucleated RBC % 0, Sodium 141, Potassium 3.7, Chloride 111 H, Carbon Dioxide 26.0, Anion Gap 4 L, BUN 23 H , Creatinine 1.28, Estim Creat Clear Calc 52.27, Est GFR (MDRD) Af Amer 70, Est GFR (MDRD) Non-Af 58 L, BUN/Creatinine Ratio 18.0, Glucose 101, Calcium 7.8 L 02/25/24 05:37: WBC 6.3, RBC 3.48 L, Hgb 10.3 L, Hct 33.1 L, MCV 95.1 H, MCH 29.6, MCHC 31.1 L, RDW Std Deviation 46.1 H, RDW Coeff of Arti 13.2, Plt Count 132 L, MPV 10.4, Immature Gran % (Auto) 0.600, Neut % (Auto) 83.0 H, Lymph % (Auto) 9.5 L, [place] % (Auto) 5.8, Eos % (Auto) 0.9, Baso % (Auto) 0.2, Absolute Neuts (auto) 5.3, Absolute Lymphs (auto) 0.60 L, Nucleated RBC % 0 Micro: Microbiology 02/23/24 08:00 Aspirate - Hand Gram Stain - Final 02/23/24 08:00 Aspirate - Hand Wound Culture - Preliminary Gram negative jennifer 02/22/24 14:28 Blood Culture (Wb) - Arm Left Blood Culture - Preliminary Gram negative jennifer 02/22/24 16:10 Urine, Catheterized Urine Culture - Preliminary Culture exhibits no growth. Physical Exam Narrative Left Upper Extremity Dorsal soft tissue swelling diffusely on the dorsum of the hand, no palmar involvement. Streaking erythema has improved, but is still on the forearm (no longer on the arm). Two small 5mm punch biopsy wounds to open cat bites are still open and draining, No purulence today from wounds(one wound at the base and middle of the hand, another just ulnar and proximal to the index finger MCP). NO PAIN with axial loading of the left index finger (LIF) MCP joint (no pain in the joint). No pain with axial loading of the wrist or with wrist ROM (no pain in the wrist joint). No fluid collections Motor: Making of a fist limited 2/2 swelling, but he can bend and extend all MCP, PIP, and DIP joints. Sensory: intact to light touch Vascular: hand warm and well perfused. Assessment & Plan Assessment/Plan (1) Cellulitis of left hand: PLAN: Improving (WBC normalized, no fevers) Gram negative rods in blood cultures and from my hand culture. Agree with continued IV antibiotics (Zosyn) F/u culture speciation PSU to follow. No surgical intervention at this point (OK for diet) Continue elevation of LUE (above hear) and make sure TID soap soaks continue Charges/Coding Visit Charges Inpatient E&M: 97339 Subs Hosp L1
[2024-02-25 06:40] LABS: Anion Gap 6 (5-15); BUN 23 mg/dL (7-18); BUN/Creat Ratio 21.5 RATIO (10-20); Calcium,Total 8.1 mg/dL (8.5-10.1); Chloride 108 mmol/L (98-107); Creatinine, Serum 1.07 mg/dL (0.70-1.30); EST Glomerular Filtration Rate 71 mL/min (>60); Est Glom Filt Rate - Afr Amer 86 mL/min (>60); Estimated Creatinine Clearance 62.53 ml/min; Glucose 99 mg/dL (74-106); Potassium 3.8 mmol/L (3.5-5.1); Sodium Level 138 mmol/L (136-145)
[2024-02-25 08:21] VITALS: BP 167/90; PULSE 72; RESP 14; TEMP 36.8; O2SAT 97
[2024-02-25] MEDS: Enoxaparin 40 MG/0.4 ML Syringe SC (08:44)
[2024-02-25] MEDS: Pantoprazole Sodium 40 MG Tablet PO (08:45)
[2024-02-25] MEDS: Carvedilol 6.25 MG Tablet PO ×2 (08:45→20:35)
[2024-02-25] MEDS: Aspirin 81 MG TAB.CHEW PO (08:45)
--- NOTE | 2024-02-25 11:05 | CASEMGMT ---
Addendum entered by Evelyn Matute 02/25/24 13:56: Dr. Fernandez states that the pt will be going home on PO ATB at time of DC. [facility] updated. Original Note: [facility] calls and states they able to accept the pt for SN and OT with SOC TBD. Will follow for potential need for home IV ATB infusions. Dr. Al states that the pt is doing better today but will not be ready for DC at this time. [facility].
[2024-02-25] MEDS: 0.9% Saline Lock 10 ML Syringe IV ×3 (13:11→23:19)
[2024-02-25 15:20] VITALS: BP 151/82; PULSE 63; RESP 15; TEMP 36.8; O2SAT 95
--- NOTE | 2024-02-25 15:53 | PCM.PN.ID ---
Physical Exam Narrative Feeling better, hand less sore, less red, but he thinks more swelling. No fever, no n/v/d. Const alert and no apparent distress General Appearance: cooperative Resp normal air movement and clear to auscultation bilaterally Cardio regular rate and regular rhythm GI soft to palpation, non-tender and non-distended Skin Skin Narrative: L hand fading redness, still swollen ID ID: Route of nutrition/ use of supplements: [] Nutritional Intake: [] IV Site: [] Muir Catheter: [] Assessment & Plan Assessment/Plan (1) Cellulitis of left hand: (2) Cat bite of hand: PLAN: With associated pasteurella bacteremia. Surgery following, will narrow to unasyn, overall improving. Plan on home with one week po augmentin. Will follow (3) Bacteremia due to Gram-negative bacteria:
--- NOTE | 2024-02-25 15:54 | PCM.PN.HOSP ---
Reason for Visit Reason for Visit: Diagnoses Elevated white blood cell count, unspecified (02/22/24) Atherosclerotic heart disease of [place] coronary artery without angina pectoris (02/22/24) Cellulitis of left upper limb (02/22/24) Bacteremia (02/22/24) Open bite of unspecified hand, initial encounter (02/22/24) Bitten by cat, initial encounter (02/22/24) Objective Data Objective Data Vital Signs: Vital Signs Temp Pulse Resp BP Pulse Ox O2 Del Method 98.2 F 63 15 151/82 H 95 Room Air 02/25/24 15:20 02/25/24 15:20 02/25/24 15:20 02/25/24 15:20 02/25/24 15:20 02/25/24 15:20 Oxygen Delivery Method Room Air Weight: 202 lb 13.204 oz Body Mass Index (BMI) 31.7 Intake & Output: Intake and Output for Last 24 Hours 02/23/24 02/24/24 02/25/24 23:59 23:59 23:59 Intake Total 2670 / 2670 850 / 850 100 / 100 Balance 2670 / 2670 850 / 850 100 / 100 Lab / Micro Data 02/25/24 05:37 02/25/24 05:37 Labs: Laboratory Results - last 24 hr 02/25/24 05:37: WBC 6.3, RBC 3.48 L, Hgb 10.3 L, Hct 33.1 L, MCV 95.1 H, MCH 29.6, MCHC 31.1 L, RDW Std Deviation 46.1 H, RDW Coeff of Arti 13.2, Plt Count 132 L, MPV 10.4, Immature Gran % (Auto) 0.600, Neut % (Auto) 83.0 H, Lymph % (Auto) 9.5 L, [place] % (Auto) 5.8, Eos % (Auto) 0.9, Baso % (Auto) 0.2, Absolute Neuts (auto) 5.3, Absolute Lymphs (auto) 0.60 L, Nucleated RBC % 0, Sodium 138, Potassium 3.8, Chloride 108 H, Carbon Dioxide 24.0, Anion Gap 6, BUN 23 H, Creatinine 1.07, Estim Creat Clear Calc 62.53, Est GFR (MDRD) Af Amer 86, Est GFR (MDRD) Non-Af 71, BUN/Creatinine Ratio 21.5 H, Glucose 99, Calcium 8.1 L Micro: Microbiology 02/23/24 08:00 Aspirate - Hand Gram Stain - Final 02/23/24 08:00 Aspirate - Hand Wound Culture - Final Pasteurella multocida 02/23/24 08:00 Aspirate - Hand Anaerobic Culture - Preliminary Checking for anaerobes, further studies to follow. 02/22/24 16:10 Urine, Catheterized Urine Culture - Final Culture exhibits no growth. 02/22/24 14:28 Blood Culture (Wb) - Arm Left Blood Culture - Final Pasteurella multocida Physical Exam Narrative Seen and examined. No fever. Patient able to flex his fingers feels swelling is better. Wound culture and blood culture shows Pasteurella multocida. Hand movement is better Physical exam General: Alert, Oriented x3, Cooperative HEENT: Atraumatic, PERRLA, EOMI, Normocephalic Oral: No Gingival or Mucosal Lesions/ Ulcerations Neck: Supple, No JVD, Negative Carotid Bruits Chest wall/Lungs: Air entry diminished in bilateral lung bases. No crepitation/rhonchi Cardiovascular: Regular rate, Regular Rhythm, Normal S1, Normal S2, No M/G/R Abdomen: Bowel Sounds Present, Soft, Non Tender, Non-Distended : No dysuria. No renal angle tenderness. No suprapubic tenderness. Extremities: No edema, Capillary Refill Less than 3 Seconds Skin: Left hand and forearm under dressing. Swelling is overall better. Erythema and swelling, pain and tenderness over left hand are improved. Musculoskeletal: Able to flex and extend left hand fingers. Opponens pollicis function present. Mild tenderness present over left hand and forearm region. Neurological: Cranial nerves II-XII grossly intact, DTR 2+/4. No acute focal neurological deficit. Psych/Mental Status: Normal Affect, Appropriate. Assessment & Plan Assessment/Plan (1) Cat bite of hand: (2) Leukocytosis: (3) CAD (coronary artery disease): QUALIFIERS: Coronary Disease-Associated Artery/Lesion type: [place] artery [place] vs. transplanted heart: [place] heart Associated angina: without angina Qualified Code(s): I25.10 - Atherosclerotic heart disease of [place] coronary artery without angina pectoris PLAN: Plan 78-year-old gentleman was admitted with cat bite around 8:30 PM on the day before admission which got progressively very swollen, tender red and painful, temperature of 102-103 in the ED and leukocytosis # Cat bite of left hand -Continue IV Zosyn. Evaluated by plastic surgeon. No fever overnight. Hand has only swollen but pain is better. Punch biopsy 5 mm around 2 bites on the dorsum of hand was done, culture was sent. Soak in warm soapy water to allow the infection to egress. -Hand x-ray with moderate soft tissue swelling. -Prelim blood culture shows aerobic gram-negative rods. Gram stain shows 4+ RBCs but no organism. -Pain control -OT consult -IV fluids 02/22: ID consult requested, reviewed and appreciated. Continue IV Zosyn. Tetanus shot if he did not had last 10 years. Suspicion of Pasteurella. 02/24: Blood culture and wound culture shows pustular multocida. Antibiotic narrowed down from change IV Zosyn to IV Unasyn. #HTN -On carvedilol #GERD -Continue PPI # History of CAD -Stent in 2013 -Continue statin, beta-sanjeev, aspirin #Concern for urinary retention -Straight cath x 1 in ED Patient voided 2 times large and one-time incontinence. Continue postvoid check and if retention will need straight/Muir catheter. #DVT ppx: SCDs Mild thrombocytopenia. Platelet count was 1 57-1 65,000 in September 2023. Dropped to 119,000. Started on Lovenox, 40 mg subcu daily with holding parameters 02/24: Platelet count is 132,000. Microbiology Past 72 Hours 02/23/24 08:00 Aspirate - Hand Gram Stain - Final 02/23/24 08:00 Aspirate - Hand Wound Culture - Final Pasteurella multocida 02/23/24 08:00 Aspirate - Hand Anaerobic Culture - Preliminary Checking for anaerobes, further studies to follow. 02/22/24 16:10 Urine, Catheterized Urine Culture - Final Culture exhibits no growth. 02/22/24 14:28 Blood Culture (Wb) - Arm Left Blood Culture - Final Pasteurella multocida Laboratory Results 02/25/24 05:37: WBC 6.3, RBC 3.48 L, Hgb 10.3 L, Hct 33.1 L, MCV 95.1 H, MCH 29.6, MCHC 31.1 L, RDW Std Deviation 46.1 H, RDW Coeff of Arti 13.2, Plt Count 132 L, MPV 10.4, Immature Gran % (Auto) 0.600, Neut % (Auto) 83.0 H, Lymph % (Auto) 9.5 L, [place] % (Auto) 5.8, Eos % (Auto) 0.9, Baso % (Auto) 0.2, Absolute Neuts (auto) 5.3, Absolute Lymphs (auto) 0.60 L, Nucleated RBC % 0, Sodium 138, Potassium 3.8, Chloride 108 H, Carbon Dioxide 24.0, Anion Gap 6, BUN 23 H, Creatinine 1.07, Estim Creat Clear Calc 62.53, Est GFR (MDRD) Af Amer 86, Est GFR (MDRD) Non-Af 71, BUN/Creatinine Ratio 21.5 H, Glucose 99, Calcium 8.1 L Charges/Coding Visit Charges Inpatient E&M: 72025 Subs Hosp L2
[2024-02-25] MEDS: Ampicillin/Sulbactam 3 GM in 0.9% Normal Saline (100mL MB+) 100 ML IV ×2 (17:38→23:20)
[2024-02-25 21:00] VITALS: BP 144/84; PULSE 74; RESP 16; TEMP 36.6; O2SAT 99
--- NOTE | 2024-02-25 23:36 | NURSING ---
hand soaking per order
[2024-02-26] MEDS: 0.9% Saline Lock 10 ML Syringe IV ×2 (06:05→18:07)
[2024-02-26] MEDS: Ampicillin/Sulbactam 3 GM in 0.9% Normal Saline (100mL MB+) 100 ML IV ×3 (06:05→18:06)
[2024-02-26 06:18] VITALS: BP 171/90; PULSE 65; RESP 16; TEMP 36.4; O2SAT 98
--- NOTE | 2024-02-26 06:18 | NURSING ---
pt hand soaking per order
[2024-02-26 07:26] LABS: Absolute Lymphocyte Count 0.73 X10^3/uL (0.83-4.51); Absolute Neutrophil Count 3.3 X10^3/uL (2.0-7.7); Basophil# 0.01 X10^3/uL; Basophil% 0.2 % (0-1); Eosinophil# 0.06 X10^3/uL; Eosinophils% 1.3 % (0-5); Hematocrit 34.4 % (40-54); Hemoglobin 10.9 g/dL (13.0-16.5); Lymphocyte # 0.73 X10^3/ul (0.83-4.51); Lymphocyte % 16.3 % (19-41); Mean Corp Hgb Conc 31.7 g/dL (32-36); Mean Corpuscular Hgb 29.9 pg (27.0-32.0); Mean Corpuscular Volume 94.2 fL (80-94); Mean Platelet Vol. 10.3 fl (6.2-12.0); Monocyte# 0.35 X10^3/uL; Monocyte% 7.8 % (0-10); NRBC Flagged by Analyzer 0 % (0-5); Neutrophil # 3.28 X10^3/uL (2.7-7.7); Neutrophil % 73.5 % (47-70); Platelet Count 155 K/mm3 (150-450); RBC Distribution Width SD 45.1 fl (35.1-43.9); Red Blood Count 3.65 M/mm3 (4.6-6.2); White Blood Count 4.5 K/mm3 (4.4-11.0)
[2024-02-26 08:01] LABS: Anion Gap 6 (5-15); BUN 17 mg/dL (7-18); Calcium,Total 8.2 mg/dL (8.5-10.1); Chloride 112 mmol/L (98-107); EST Glomerular Filtration Rate 77 mL/min (>60); Est Glom Filt Rate - Afr Amer 93 mL/min (>60); Glucose 107 mg/dL (74-106); Potassium 3.9 mmol/L (3.5-5.1); Sodium Level 143 mmol/L (136-145)
[2024-02-26 08:16] VITALS: BP 171/86; PULSE 66; RESP 18; TEMP 36.8; O2SAT 97
[2024-02-26] MEDS: Pantoprazole Sodium 40 MG Tablet PO (08:24)
[2024-02-26] MEDS: Carvedilol 6.25 MG Tablet PO (08:24)
[2024-02-26] MEDS: Enoxaparin 40 MG/0.4 ML Syringe SC (08:25)
[2024-02-26] MEDS: Aspirin 81 MG TAB.CHEW PO (08:25)
--- NOTE | 2024-02-26 08:27 | PCM.PN.SRG ---
Subjective Subjective Doing better today. Reports hand feels better and seems less swollen. He's been compliant with the soaks and elevation. Objective Data Objective Data Vital Signs: Vital Signs Temp Pulse Resp BP Pulse Ox O2 Del Method 98.2 F 66 18 171/86 H 97 Room Air 02/26/24 08:16 02/26/24 08:16 02/26/24 08:16 02/26/24 08:16 02/26/24 08:16 02/26/24 08:16 Oxygen Delivery Method Room Air Weight: 202 lb 13.204 oz Body Mass Index (BMI) 31.7 Intake & Output: Intake and Output for Last 24 Hours 02/24/24 02/25/24 02/26/24 23:59 23:59 23:59 Intake Total 850 / 850 212 / 212 224 / 224 Balance 850 / 850 212 / 212 224 / 224 Lab / Micro Data 02/26/24 07:00 02/26/24 07:00 Labs: Laboratory Results - last 24 hr 02/26/24 07:00: WBC 4.5, RBC 3.65 L, Hgb 10.9 L, Hct 34.4 L, MCV 94.2 H, MCH 29.9, MCHC 31.7 L, RDW Std Deviation 45.1 H, RDW Coeff of Arti 13.0, Plt Count 155, MPV 10.3, Immature Gran % (Auto) 0.900, Neut % (Auto) 73.5 H, Lymph % (Auto) 16.3 L, [place] % (Auto) 7.8, Eos % (Auto) 1.3, Baso % (Auto) 0.2, Absolute Neuts (auto) 3.3, Absolute Lymphs (auto) 0.73 L, Nucleated RBC % 0, Sodium 143, Potassium 3.9, Chloride 112 H, Carbon Dioxide 25.0, Anion Gap 6, BUN 17, Creatinine 1.00, Estim Creat Clear Calc 66.90, Est GFR (MDRD) Af Amer 93, Est GFR (MDRD) Non-Af 77, BUN/Creatinine Ratio 17.0, Glucose 107 H, Calcium 8.2 L Micro: Microbiology 02/23/24 08:00 Aspirate - Hand Gram Stain - Final 02/23/24 08:00 Aspirate - Hand Wound Culture - Final Pasteurella multocida 02/23/24 08:00 Aspirate - Hand Anaerobic Culture - Preliminary Checking for anaerobes, further studies to follow. 02/22/24 16:10 Urine, Catheterized Urine Culture - Final Culture exhibits no growth. 02/22/24 14:28 Blood Culture (Wb) - Arm Left Blood Culture - Final Pasteurella multocida Physical Exam Narrative Narrative Left Upper Extremity Dorsal soft tissue swelling has improved on dorsum of the hand, no palmar involvement. Streaking erythema has improved, but is still on the forearm (no longer on the arm). Two small 5mm punch biopsy wounds to open cat bites are still open and draining, are draining some purulence today from wounds (one wound at the base and middle of the hand, another just ulnar and proximal to the index finger MCP). Patient was stoic and allowed me to milk out the small amount of purulence and then he started another soak. NO PAIN with axial loading of the left index finger (LIF) MCP joint (no pain in the joint). No pain with axial loading of the wrist or with wrist ROM (no pain in the wrist joint). No fluid collections Motor: Making of a fist limited 2/2 swelling, but he can bend and extend all MCP, PIP, and DIP joints. Better ROM today. Sensory: intact to light touch Vascular: hand warm and well perfused. Assessment & Plan Assessment/Plan (1) Bacteremia due to Gram-negative bacteria: (2) Cellulitis of left hand: PLAN: Plan Improving (WBC normalized, no fevers) and swelling is better. Some purulence from wounds today, so continue soaks and elevation. I may have to open distal wound slightly tomorrow at bedside (no OR plans though) if he continues to drain purulence. Pasteurella spp. in blood cultures and from my hand culture. Agree with continued IV antibiotics (Zosyn) and ID consultation. PSU to follow. No surgical intervention at this point (OK for diet) Continue elevation of LUE (above hear) and make sure TID soap soaks continue Charges/Coding Visit Charges Inpatient E&M: 46466 Subs Hosp L2 (Discussed with patient the course of his condition and the progress he's making. Saw and examined the hand. Had to milk purulence from incisions and make decision about whether to make larger wound (holding off for today). Moderate level of difficulty for medical decision making. >35 min spent )
--- NOTE | 2024-02-26 09:12 | WOUNDNOTE ---
Dr Wu had been in to see patient this am. was able to express some purulence from the open areas of the hand today. plan for continues hand soaks TID.
--- NOTE | 2024-02-26 10:05 | PCM.PN.ID ---
Physical Exam Narrative Feeling better, hand less sore, less red, less swollen. No fever, no n/v/d. Const alert and no apparent distress General Appearance: cooperative Resp normal air movement and clear to auscultation bilaterally Cardio regular rate and regular rhythm GI soft to palpation, non-tender and non-distended Skin Skin Narrative: L hand less inflammed ID ID: Route of nutrition/ use of supplements: [] Nutritional Intake: [] IV Site: [] Muir Catheter: [] Assessment & Plan Assessment/Plan (1) Cellulitis of left hand: (2) Cat bite of hand: PLAN: With associated pasteurella bacteremia. Surgery following, narrowed to unasyn, overall improving. Plan on home with one week po augmentin. Will follow (3) Bacteremia due to Gram-negative bacteria:
[2024-02-26] MEDS: Carvedilol 12.5 MG Tablet PO ×2 (10:46→21:29)
[2024-02-26] MEDS: Lisinopril 10 MG Tablet PO (10:46)
[2024-02-26 14:00] VITALS: BP 151/80; PULSE 66; RESP 18; TEMP 36.7; O2SAT 99
--- NOTE | 2024-02-26 16:54 | PN.HOSP_ITS ---
Reason for Visit Reason for Visit: Diagnoses Elevated white blood cell count, unspecified (02/22/24) Atherosclerotic heart disease of [place] coronary artery without angina pectoris (02/22/24) Cellulitis of left upper limb (02/22/24) Bacteremia (02/22/24) Open bite of unspecified hand, initial encounter (02/22/24) Bitten by cat, initial encounter (02/22/24) Objective Data Objective Data Vital Signs: Vital Signs Temp Pulse Resp BP Pulse Ox O2 Del Method 98.0 F 66 18 151/80 H 99 Room Air 02/26/24 14:00 02/26/24 14:00 02/26/24 14:00 02/26/24 14:00 02/26/24 14:00 02/26/24 14:00 Oxygen Delivery Method Room Air Weight: 202 lb 13.204 oz Body Mass Index (BMI) 31.7 Intake & Output: Intake and Output for Last 24 Hours 02/24/24 02/25/24 02/26/24 23:59 23:59 23:59 Intake Total 850 / 850 212 / 212 636 / 636 Balance 850 / 850 212 / 212 636 / 636 Lab / Micro Data 02/26/24 07:00 02/26/24 07:00 Labs: Laboratory Results - last 24 hr 02/26/24 07:00: WBC 4.5, RBC 3.65 L, Hgb 10.9 L, Hct 34.4 L, MCV 94.2 H, MCH 29.9, MCHC 31.7 L, RDW Std Deviation 45.1 H, RDW Coeff of Arti 13.0, Plt Count 155, MPV 10.3, Immature Gran % (Auto) 0.900, Neut % (Auto) 73.5 H, Lymph % (Auto) 16.3 L, [place] % (Auto) 7.8, Eos % (Auto) 1.3, Baso % (Auto) 0.2, Absolute Neuts (auto) 3.3, Absolute Lymphs (auto) 0.73 L, Nucleated RBC % 0, Sodium 143, Potassium 3.9, Chloride 112 H, Carbon Dioxide 25.0, Anion Gap 6, BUN 17, Creatinine 1.00, Estim Creat Clear Calc 66.90, Est GFR (MDRD) Af Amer 93, Est GFR (MDRD) Non-Af 77, BUN/Creatinine Ratio 17.0, Glucose 107 H, Calcium 8.2 L Micro: Microbiology 02/23/24 08:00 Aspirate - Hand Gram Stain - Final 02/23/24 08:00 Aspirate - Hand Wound Culture - Final Pasteurella multocida 02/23/24 08:00 Aspirate - Hand Anaerobic Culture - Preliminary Checking for anaerobes, further studies to follow. 02/22/24 16:10 Urine, Catheterized Urine Culture - Final Culture exhibits no growth. 02/22/24 14:28 Blood Culture (Wb) - Arm Left Blood Culture - Final Pasteurella multocida Physical Exam Narrative Seen and examined. No fever. Patient able to flex his fingers feels swelling is better. Wants to get the morning. Wound culture and blood culture shows Pasteurella multocida. Hand movement is better Physical exam General: Alert, Oriented x3, Cooperative HEENT: Atraumatic, PERRLA, EOMI, Normocephalic Oral: No Gingival or Mucosal Lesions/ Ulcerations Neck: Supple, No JVD, Negative Carotid Bruits Chest wall/Lungs: Air entry diminished in bilateral lung bases. No crepitation/rhonchi Cardiovascular: Regular rate, Regular Rhythm, Normal S1, Normal S2, No M/G/R Abdomen: Bowel Sounds Present, Soft, Non Tender, Non-Distended : No dysuria. No renal angle tenderness. No suprapubic tenderness. Extremities: No edema, Capillary Refill Less than 3 Seconds Skin: Left hand and forearm under dressing. Swelling is overall better. Erythema and swelling, pain and tenderness over left hand are improved. Musculoskeletal: Able to flex and extend left hand fingers. Opponens pollicis function present. Mild tenderness present over left hand and forearm region. Neurological: Cranial nerves II-XII grossly intact, DTR 2+/4. No acute focal neurological deficit. Psych/Mental Status: Normal Affect, Appropriate. Assessment & Plan Assessment/Plan (1) Cat bite of hand: (2) Leukocytosis: (3) CAD (coronary artery disease): QUALIFIERS: Coronary Disease-Associated Artery/Lesion type: [place] artery [place] vs. transplanted heart: [place] heart Associated angina: without angina Qualified Code(s): I25.10 - Atherosclerotic heart disease of [place] coronary artery without angina pectoris PLAN: Plan 78-year-old gentleman was admitted with cat bite around 8:30 PM on the day before admission which got progressively very swollen, tender red and painful, temperature of 102-103 in the ED and leukocytosis # Cat bite of left hand -Continue IV Zosyn. Evaluated by plastic surgeon. No fever overnight. Hand has only swollen but pain is better. Punch biopsy 5 mm around 2 bites on the dorsum of hand was done, culture was sent. Soak in warm soapy water to allow the infection to egress. -Hand x-ray with moderate soft tissue swelling. -Prelim blood culture shows aerobic gram-negative rods. Gram stain shows 4+ RBCs but no organism. -Pain control -OT consult -IV fluids 02/22: ID consult requested, reviewed and appreciated. Continue IV Zosyn. Tetanus shot if he did not had last 10 years. Suspicion of Pasteurella. 02/24: Blood culture and wound culture shows pustular multocida. Antibiotic narrowed down from change IV Zosyn to IV Unasyn. 02/25: Patient able to flex finger. Tenderness is also improved nearly restricted to the dorsal aspect of right hand. ID follow-up reviewed. Plan for 1 week of p.o. Augmentin #HTN -On carvedilol #GERD -Continue PPI # History of CAD -Stent in 2013 -Continue statin, beta-sanjeev, aspirin #Concern for urinary retention -Straight cath x 1 in ED Patient voided 2 times large and one-time incontinence. Continue postvoid check and if retention will need straight/Muir catheter. #DVT ppx: SCDs Mild thrombocytopenia. Platelet count was 1 57-1 65,000 in September 2023. Dropped to 119,000. Started on Lovenox, 40 mg subcu daily with holding parameters 02/24: Platelet count is 132,000. Microbiology Past 72 Hours 02/23/24 08:00 Aspirate - Hand Gram Stain - Final 02/23/24 08:00 Aspirate - Hand Wound Culture - Final Pasteurella multocida 02/23/24 08:00 Aspirate - Hand Anaerobic Culture - Preliminary Checking for anaerobes, further studies to follow. 02/22/24 16:10 Urine, Catheterized Urine Culture - Final Culture exhibits no growth. 02/22/24 14:28 Blood Culture (Wb) - Arm Left Blood Culture - Final Pasteurella multocida Laboratory Results 02/26/24 07:00: WBC 4.5, RBC 3.65 L, Hgb 10.9 L, Hct 34.4 L, MCV 94.2 H, MCH 29.9, MCHC 31.7 L, RDW Std Deviation 45.1 H, RDW Coeff of Arti 13.0, Plt Count 155, MPV 10.3, Immature Gran % (Auto) 0.900, Neut % (Auto) 73.5 H, Lymph % (Auto) 16.3 L, [place] % (Auto) 7.8, Eos % (Auto) 1.3, Baso % (Auto) 0.2, Absolute Neuts (auto) 3.3, Absolute Lymphs (auto) 0.73 L, Nucleated RBC % 0, Sodium 143, Potassium 3.9, Chloride 112 H, Carbon Dioxide 25.0, Anion Gap 6, BUN 17, Creatinine 1.00, Estim Creat Clear Calc 66.90, Est GFR (MDRD) Af Amer 93, Est GFR (MDRD) Non-Af 77, BUN/Creatinine Ratio 17.0, Glucose 107 H, Calcium 8.2 L Charges/Coding Visit Charges Inpatient E&M: 49354 Subs Hosp L2
[2024-02-26 21:25] VITALS: BP 159/81; PULSE 64; RESP 16; TEMP 37; O2SAT 98
[2024-02-26] MEDS: Pravastatin 20 MG Tablet PO (21:29)
[2024-02-27] MEDS: 0.9% Saline Lock 10 ML Syringe IV ×3 (00:15→11:45)
[2024-02-27] MEDS: Ampicillin/Sulbactam 3 GM in 0.9% Normal Saline (100mL MB+) 100 ML IV ×5 (00:15→23:34)
--- NOTE | 2024-02-27 00:25 | NURSING ---
hand soaking per order
[2024-02-27 01:01] VITALS: BP 146/83; PULSE 63; RESP 16; TEMP 37.1; O2SAT 95
[2024-02-27 06:46] LABS: Absolute Lymphocyte Count 1.07 X10^3/uL (0.83-4.51); Absolute Neutrophil Count 4.6 X10^3/uL (2.0-7.7); Basophil# 0.04 X10^3/uL; Basophil% 0.6 % (0-1); Eosinophil# 0.12 X10^3/uL; Eosinophils% 1.9 % (0-5); Hematocrit 35.3 % (40-54); Lymphocyte # 1.07 X10^3/ul (0.83-4.51); Mean Corp Hgb Conc 31.2 g/dL (32-36); Mean Corpuscular Hgb 29.4 pg (27.0-32.0); Mean Corpuscular Volume 94.4 fL (80-94); Mean Platelet Vol. 10.1 fl (6.2-12.0); Monocyte# 0.46 X10^3/uL; Monocyte% 7.3 % (0-10); NRBC Flagged by Analyzer 0 % (0-5); Neutrophil # 4.58 X10^3/uL (2.7-7.7); Neutrophil % 72.6 % (47-70); Platelet Count 197 K/mm3 (150-450); RBC Distribution Width SD 44.5 fl (35.1-43.9); Red Blood Count 3.74 M/mm3 (4.6-6.2); White Blood Count 6.3 K/mm3 (4.4-11.0)
[2024-02-27 07:20] LABS: Anion Gap 3 (5-15); BUN 15 mg/dL (7-18); BUN/Creat Ratio 14.7 RATIO (10-20); Calcium,Total 8.6 mg/dL (8.5-10.1); Chloride 108 mmol/L (98-107); Creatinine, Serum 1.02 mg/dL (0.70-1.30); EST Glomerular Filtration Rate 75 mL/min (>60); Est Glom Filt Rate - Afr Amer 91 mL/min (>60); Estimated Creatinine Clearance 65.59 ml/min; Glucose 108 mg/dL (74-106); Potassium 3.9 mmol/L (3.5-5.1); Sodium Level 139 mmol/L (136-145)
[2024-02-27 07:57] VITALS: BP 166/87; PULSE 66; RESP 18; TEMP 36.6; O2SAT 96
[2024-02-27] MEDS: Aspirin 81 MG TAB.CHEW PO (08:03)
[2024-02-27] MEDS: Carvedilol 12.5 MG Tablet PO ×2 (08:03→22:20)
[2024-02-27] MEDS: Lisinopril 10 MG Tablet PO (08:04)
[2024-02-27] MEDS: Pantoprazole Sodium 40 MG Tablet PO (08:04)
[2024-02-27] MEDS: Enoxaparin 40 MG/0.4 ML Syringe SC (08:04)
--- NOTE | 2024-02-27 10:06 | PCM.PN.SRG ---
Subjective Subjective Doing well today. Feels like his left hand has much improved. Objective Data Objective Data Vital Signs: Vital Signs Temp Pulse Resp BP Pulse Ox O2 Del Method 97.8 F 66 18 166/87 H 96 Room Air 02/27/24 07:57 02/27/24 07:57 02/27/24 07:57 02/27/24 07:57 02/27/24 07:57 02/27/24 07:57 Oxygen Delivery Method Room Air Weight: 202 lb 13.204 oz Body Mass Index (BMI) 31.7 Intake & Output: Intake and Output for Last 24 Hours 02/25/24 02/26/24 02/27/24 23:59 23:59 23:59 Intake Total 1048 / 1048 224 / 224 Balance 1048 / 1048 224 / 224 Lab / Micro Data 02/27/24 06:22 02/27/24 06:22 Labs: Laboratory Results - last 24 hr 02/27/24 06:22: WBC 6.3, RBC 3.74 L, Hgb 11.0 L, Hct 35.3 L, MCV 94.4 H, MCH 29.4, MCHC 31.2 L, RDW Std Deviation 44.5 H, RDW Coeff of Arti 13.0, Plt Count 197, MPV 10.1, Immature Gran % (Auto) 0.600, Neut % (Auto) 72.6 H, Lymph % (Auto) 17.0 L, [place] % (Auto) 7.3, Eos % (Auto) 1.9, Baso % (Auto) 0.6, Absolute Neuts (auto) 4.6, Absolute Lymphs (auto) 1.07, Nucleated RBC % 0, Sodium 139, Potassium 3.9, Chloride 108 H, Carbon Dioxide 28.0, Anion Gap 3 L, BUN 15, Creatinine 1.02, Estim Creat Clear Calc 65.59, Est GFR (MDRD) Af Amer 91, Est GFR (MDRD) Non-Af 75, BUN/Creatinine Ratio 14.7, Glucose 108 H, Calcium 8.6 Micro: Microbiology 02/23/24 08:00 Aspirate - Hand Gram Stain - Final 02/23/24 08:00 Aspirate - Hand Wound Culture - Final Pasteurella multocida 02/23/24 08:00 Aspirate - Hand Anaerobic Culture - Preliminary Checking for anaerobes, further studies to follow. 02/22/24 16:10 Urine, Catheterized Urine Culture - Final Culture exhibits no growth. 02/22/24 14:28 Blood Culture (Wb) - Arm Left Blood Culture - Final Pasteurella multocida Physical Exam Narrative Left Upper Extremity Dorsal soft tissue swelling has improved on dorsum of the hand, no palmar involvement. Streaking erythema is gone. Two small 5mm punch biopsy wounds to open cat bites are still open and draining WITHOUT PURULENCE today NO PAIN with axial loading of the left index finger (LIF) MCP joint (no pain in the joint). No pain with axial loading of the wrist or with wrist ROM (no pain in the wrist joint). No fluid collections Motor: Making of a fist is no longer limited, but he can bend and extend all MCP, PIP, and DIP joints. Better ROM today. Sensory: intact to light touch Vascular: hand warm and well perfused. Assessment & Plan Assessment/Plan (1) Cellulitis of left hand: PLAN: Plan Improving (WBC normalized, no fevers) and swelling is better. No purulence from wounds today, continue soaks and elevation. I may have to open distal wound slightly tomorrow at bedside (no OR plans though) if he continues to drain purulence. Pasteurella spp. in blood cultures and from my hand culture. Agree with continued IV antibiotics today. Consider de-escalating to PO antibiotics tomorrow, then maybe we can DC home on Friday, 29 Feb 2024, if ID and medicine comfortable with that plan. I will see in clinic on Friday, 02 Mar 2024. PSU to follow. No surgical intervention at this point (OK for diet) Continue elevation of LUE (above hear) and make sure TID soap soaks continue Charges/Coding Visit Charges Inpatient E&M: 71006 Subs Hosp L1
--- NOTE | 2024-02-27 13:01 | PCM.PN.ID ---
Physical Exam Narrative Feeling better, hand improved, no n/v/d. Const alert and no apparent distress General Appearance: cooperative Resp normal air movement and clear to auscultation bilaterally Cardio regular rate and regular rhythm GI soft to palpation, non-tender and non-distended Skin Skin Narrative: L hand less red, much less swollen ID ID: Route of nutrition/ use of supplements: [] Nutritional Intake: [] IV Site: [] Muir Catheter: [] Assessment & Plan Assessment/Plan (1) Cellulitis of left hand: (2) Cat bite of hand: PLAN: With associated pasteurella bacteremia. Surgery following, narrowed to unasyn, overall improving. Plan on home Friday with 5 more days po augmentin 875mg bid. Will follow as needed (3) Bacteremia due to Gram-negative bacteria:
[2024-02-27 14:00] VITALS: BP 142/66; PULSE 67; RESP 18; TEMP 37.2; O2SAT 96
--- NOTE | 2024-02-27 14:44 | CASEMGMT ---
Per the MD, the pt is projected to DC Friday. [facility] updated and aware and state that they are able to start care on Friday and deny further needs.
--- NOTE | 2024-02-27 15:27 | PN.HOSP_ITS ---
Reason for Visit Reason for Visit: Diagnoses Elevated white blood cell count, unspecified (02/22/24) Atherosclerotic heart disease of [place] coronary artery without angina pectoris (02/22/24) Cellulitis of left upper limb (02/22/24) Bacteremia (02/22/24) Open bite of unspecified hand, initial encounter (02/22/24) Bitten by cat, initial encounter (02/22/24) Objective Data Objective Data Vital Signs: Vital Signs Temp Pulse Resp BP Pulse Ox O2 Del Method 99.0 F 67 18 142/66 H 96 Room Air 02/27/24 14:00 02/27/24 14:00 02/27/24 14:00 02/27/24 14:00 02/27/24 14:00 02/27/24 14:00 Oxygen Delivery Method Room Air Weight: 202 lb 13.204 oz Body Mass Index (BMI) 31.7 Intake & Output: Intake and Output for Last 24 Hours 02/25/24 02/26/24 02/27/24 23:59 23:59 23:59 Intake Total 212 / 212 1048 / 1048 636 / 636 Balance 212 / 1048 / 1048 636 / 636 Lab / Micro Data 02/27/24 06:22 02/27/24 06:22 Labs: Laboratory Results - last 24 hr 02/27/24 06:22: WBC 6.3, RBC 3.74 L, Hgb 11.0 L, Hct 35.3 L, MCV 94.4 H, MCH 29.4, MCHC 31.2 L, RDW Std Deviation 44.5 H, RDW Coeff of Arti 13.0, Plt Count 197, MPV 10.1, Immature Gran % (Auto) 0.600, Neut % (Auto) 72.6 H, Lymph % (Auto) 17.0 L, [place] % (Auto) 7.3, Eos % (Auto) 1.9, Baso % (Auto) 0.6, Absolute Neuts (auto) 4.6, Absolute Lymphs (auto) 1.07, Nucleated RBC % 0, Sodium 139, Potassium 3.9, Chloride 108 H, Carbon Dioxide 28.0, Anion Gap 3 L, BUN 15, Creatinine 1.02, Estim Creat Clear Calc 65.59, Est GFR (MDRD) Af Amer 91, Est GFR (MDRD) Non-Af 75, BUN/Creatinine Ratio 14.7, Glucose 108 H, Calcium 8.6 Micro: Microbiology 02/23/24 08:00 Aspirate - Hand Gram Stain - Final 02/23/24 08:00 Aspirate - Hand Wound Culture - Final Pasteurella multocida 02/23/24 08:00 Aspirate - Hand Anaerobic Culture - Final No anaerobic bacteria isolated. 02/22/24 16:10 Urine, Catheterized Urine Culture - Final Culture exhibits no growth. 02/22/24 14:28 Blood Culture (Wb) - Arm Left Blood Culture - Final Pasteurella multocida Physical Exam Narrative Seen and examined. No fever. Patient able to flex his fingers feels swelling is better. Patient soaks his hand every day on soap water. Cellulitis has much improved now restricted to the dorsum of left hand. Wound culture and blood culture shows Pasteurella multocida. Hand movement is better Physical exam General: Alert, Oriented x3, Cooperative HEENT: Atraumatic, PERRLA, EOMI, Normocephalic Oral: No Gingival or Mucosal Lesions/ Ulcerations Neck: Supple, No JVD, Negative Carotid Bruits Chest wall/Lungs: Air entry diminished in bilateral lung bases. No crepitation/rhonchi Cardiovascular: Regular rate, Regular Rhythm, Normal S1, Normal S2, No M/G/R Abdomen: Bowel Sounds Present, Soft, Non Tender, Non-Distended : No dysuria. No renal angle tenderness. No suprapubic tenderness. Extremities: No edema, Capillary Refill Less than 3 Seconds Skin: Left hand and forearm under dressing. Swelling is overall better. Erythema and swelling, pain and tenderness over left hand are improved. Musculoskeletal: Able to flex and extend left hand fingers. Opponens pollicis function present. Mild tenderness present over left hand and forearm region. Neurological: Cranial nerves II-XII grossly intact, DTR 2+/4. No acute focal neurological deficit. Psych/Mental Status: Normal Affect, Appropriate. Assessment & Plan Assessment/Plan (1) Cat bite of hand: (2) Leukocytosis: (3) CAD (coronary artery disease): QUALIFIERS: Coronary Disease-Associated Artery/Lesion type: [place] artery [place] vs. transplanted heart: [place] heart Associated angina: without angina Qualified Code(s): I25.10 - Atherosclerotic heart disease of [place] coronary artery without angina pectoris PLAN: Plan 78-year-old gentleman was admitted with cat bite around 8:30 PM on the day before admission which got progressively very swollen, tender red and painful, temperature of 102-103 in the ED and leukocytosis # Cat bite of left hand -Continue IV Zosyn. Evaluated by plastic surgeon. No fever overnight. Hand has only swollen but pain is better. Punch biopsy 5 mm around 2 bites on the dorsum of hand was done, culture was sent. Soak in warm soapy water to allow the infection to egress. -Hand x-ray with moderate soft tissue swelling. -Prelim blood culture shows aerobic gram-negative rods. Gram stain shows 4+ RBCs but no organism. -Pain control -OT consult -IV fluids 02/22: ID consult requested, reviewed and appreciated. Continue IV Zosyn. Tetanus shot if he did not had last 10 years. Suspicion of Pasteurella. 02/24: Blood culture and wound culture shows pustular multocida. Antibiotic narrowed down from change IV Zosyn to IV Unasyn. 02/25: Patient able to flex finger. Tenderness is also improved nearly restricted to the dorsal aspect of right hand. ID follow-up reviewed. Plan for 1 week of p.o. Augmentin 02/26: Cellulitis restricted to the dorsum of left hand. Evaluated by plastic surgeon and no pus came out. No purulence from the wound. Continue soaking and elevation. Might need to open distal wound slightly tomorrow at bedside but no OR plan. Planning for discharge on Friday and follow-up in the clinic on Friday, 02 March 2024. After discharge 5 more days of oral Augmentin 875 mg twice daily. ID follow-up appreciated #HTN -On carvedilol #GERD -Continue PPI # History of CAD -Stent in 2013 -Continue statin, beta-sanjeev, aspirin #Concern for urinary retention -Straight cath x 1 in ED Patient voided 2 times large and one-time incontinence. Continue postvoid check and if retention will need straight/Muir catheter. #DVT ppx: SCDs Mild thrombocytopenia. Platelet count was 1 57-1 65,000 in September 2023. Dropped to 119,000. Started on Lovenox, 40 mg subcu daily with holding parameters 02/24: Platelet count is 132,000. Microbiology Past 72 Hours 02/23/24 08:00 Aspirate - Hand Gram Stain - Final 02/23/24 08:00 Aspirate - Hand Wound Culture - Final Pasteurella multocida 02/23/24 08:00 Aspirate - Hand Anaerobic Culture - Final No anaerobic bacteria isolated. 02/22/24 16:10 Urine, Catheterized Urine Culture - Final Culture exhibits no growth. 02/22/24 14:28 Blood Culture (Wb) - Arm Left Blood Culture - Final Pasteurella multocida Laboratory Results 02/27/24 06:22: WBC 6.3, RBC 3.74 L, Hgb 11.0 L, Hct 35.3 L, MCV 94.4 H, MCH 29.4, MCHC 31.2 L, RDW Std Deviation 44.5 H, RDW Coeff of Arti 13.0, Plt Count 197, MPV 10.1, Immature Gran % (Auto) 0.600, Neut % (Auto) 72.6 H, Lymph % (Auto) 17.0 L, [place] % (Auto) 7.3, Eos % (Auto) 1.9, Baso % (Auto) 0.6, Absolute Neuts (auto) 4.6, Absolute Lymphs (auto) 1.07, Nucleated RBC % 0, Sodium 139, Potassium 3.9, Chloride 108 H, Carbon Dioxide 28.0, Anion Gap 3 L, BUN 15, Creatinine 1.02, Estim Creat Clear Calc 65.59, Est GFR (MDRD) Af Amer 91, Est GFR (MDRD) Non-Af 75, BUN/Creatinine Ratio 14.7, Glucose 108 H, Calcium 8.6 Charges/Coding Visit Charges Inpatient E&M: 17418 Subs Hosp L2
[2024-02-27 22:16] VITALS: BP 164/74; PULSE 70; RESP 16; TEMP 36.6; O2SAT 98
[2024-02-27] MEDS: Acetaminophen 325 MG Tablet 650 MG PO (22:35)
[2024-02-28] MEDS: Ampicillin/Sulbactam 3 GM in 0.9% Normal Saline (100mL MB+) 100 ML IV ×2 (05:04→11:19)
[2024-02-28 05:05] VITALS: BP 160/83; PULSE 65; RESP 16; TEMP 36.6; O2SAT 98
[2024-02-28] MEDS: Carvedilol 12.5 MG Tablet PO ×2 (05:29→21:54)
--- NOTE | 2024-02-28 05:55 | PN.SURG_ITS ---
Subjective Subjective Doing well this morning. Pain continues to improve. Reports better range of motion in his left hand. Objective Data Objective Data Vital Signs: Vital Signs Temp Pulse Resp BP Pulse Ox O2 Del Method 97.8 F 65 16 160/83 H 98 Room Air 02/28/24 05:05 02/28/24 05:05 02/28/24 05:05 02/28/24 05:05 02/28/24 05:05 02/28/24 05:05 Oxygen Delivery Method Room Air Weight: 202 lb 13.204 oz Body Mass Index (BMI) 31.7 Intake & Output: Intake and Output for Last 24 Hours 02/26/24 02/27/24 02/28/24 23:59 23:59 23:59 Intake Total 1048 / 1048 1048 / 1348 412 / 412 Balance 1048 / 1048 1048 / 1348 412 / 412 Lab / Micro Data 02/27/24 06:22 02/27/24 06:22 Labs: Laboratory Results - last 24 hr 02/27/24 06:22: WBC 6.3, RBC 3.74 L, Hgb 11.0 L, Hct 35.3 L, MCV 94.4 H, MCH 29.4, MCHC 31.2 L, RDW Std Deviation 44.5 H, RDW Coeff of Arti 13.0, Plt Count 197, MPV 10.1, Immature Gran % (Auto) 0.600, Neut % (Auto) 72.6 H, Lymph % (Auto) 17.0 L, [place] % (Auto) 7.3, Eos % (Auto) 1.9, Baso % (Auto) 0.6, Absolute Neuts (auto) 4.6, Absolute Lymphs (auto) 1.07, Nucleated RBC % 0, Sodium 139, Potassium 3.9, Chloride 108 H, Carbon Dioxide 28.0, Anion Gap 3 L, BUN 15, Creatinine 1.02, Estim Creat Clear Calc 65.59, Est GFR (MDRD) Af Amer 91, Est GFR (MDRD) Non-Af 75, BUN/Creatinine Ratio 14.7, Glucose 108 H, Calcium 8.6 Micro: Microbiology 02/23/24 08:00 Aspirate - Hand Gram Stain - Final 02/23/24 08:00 Aspirate - Hand Wound Culture - Final Pasteurella multocida 02/23/24 08:00 Aspirate - Hand Anaerobic Culture - Final No anaerobic bacteria isolated. 02/22/24 16:10 Urine, Catheterized Urine Culture - Final Culture exhibits no growth. 02/22/24 14:28 Blood Culture (Wb) - Arm Left Blood Culture - Final Pasteurella multocida Physical Exam Narrative Left Upper Extremity Dorsal soft tissue swelling has improved on dorsum of the hand, no palmar involvement. Streaking erythema is gone. Two small 5mm punch biopsy wounds to open cat bites are still open and draining WITHOUT PURULENCE today NO PAIN with axial loading of the left index finger (LIF) MCP joint (no pain in the joint). No pain with axial loading of the wrist or with wrist ROM (no pain in the wrist joint). No fluid collections Motor: Making of a fist is no longer limited, but he can bend and extend all MCP, PIP, and DIP joints. Better ROM today. Sensory: intact to light touch Vascular: hand warm and well perfused. Assessment & Plan Assessment/Plan (1) Cellulitis of left hand: PLAN: Patient continues to improve No fluid collections on exam today in the cellulitis is limited to the distal dorsum of left hand No surgical intervention I agree with transition to oral antibiotics today (Augmentin) and monitor patient on oral antibiotics today with plan for discharge tomorrow He is scheduled with me on Friday, 02 March 2024 Charges/Coding Visit Charges Inpatient E&M: 22179 Subs Hosp L1
[2024-02-28 08:00] VITALS: BP 169/73; PULSE 60; RESP 16; TEMP 36.6; O2SAT 98
[2024-02-28] MEDS: Pantoprazole Sodium 40 MG Tablet PO (08:06)
[2024-02-28] MEDS: Lisinopril 10 MG Tablet PO (08:06)
[2024-02-28] MEDS: Aspirin 81 MG TAB.CHEW PO (08:06)
[2024-02-28] MEDS: Enoxaparin 40 MG/0.4 ML Syringe SC (08:08)
[2024-02-28 09:15] VITALS: BP 147/78; PULSE 61; RESP 16; TEMP 36.6; O2SAT 98
--- NOTE | 2024-02-28 11:23 | PCM.PN.HOSP ---
Reason for Visit Reason for Visit: Diagnoses Elevated white blood cell count, unspecified (02/22/24) Atherosclerotic heart disease of [place] coronary artery without angina pectoris (02/22/24) Cellulitis of left upper limb (02/22/24) Bacteremia (02/22/24) Open bite of unspecified hand, initial encounter (02/22/24) Bitten by cat, initial encounter (02/22/24) Objective Data Objective Data Vital Signs: Vital Signs Temp Pulse Resp BP Pulse Ox O2 Del Method 97.8 F 61 16 147/78 H 98 Room Air 02/28/24 09:15 02/28/24 09:15 02/28/24 09:15 02/28/24 09:15 02/28/24 09:15 02/28/24 10:20 Oxygen Delivery Method Room Air Weight: 202 lb 13.204 oz Body Mass Index (BMI) 31.7 Intake & Output: Intake and Output for Last 24 Hours 02/26/24 02/27/24 02/28/24 23:59 23:59 23:59 Intake Total 1048 / 1048 1048 / 1348 724 / 724 Balance 1048 / 1048 1048 / 1348 724 / 724 Lab / Micro Data 02/27/24 06:22 02/27/24 06:22 Micro: Microbiology 02/23/24 08:00 Aspirate - Hand Gram Stain - Final 02/23/24 08:00 Aspirate - Hand Wound Culture - Final Pasteurella multocida 02/23/24 08:00 Aspirate - Hand Anaerobic Culture - Final No anaerobic bacteria isolated. 02/22/24 16:10 Urine, Catheterized Urine Culture - Final Culture exhibits no growth. 02/22/24 14:28 Blood Culture (Wb) - Arm Left Blood Culture - Final Pasteurella multocida Physical Exam Narrative Seen and examined. No fever. Patient able to flex his fingers feels swelling is better. Patient soaks his hand every day on soap water. Cellulitis has much improved now restricted to the dorsum of left hand. Wound culture and blood culture shows Pasteurella multocida. Physical exam General: Alert, Oriented x3, Cooperative HEENT: Atraumatic, PERRLA, EOMI, Normocephalic Oral: No Gingival or Mucosal Lesions/ Ulcerations Neck: Supple, No JVD, Negative Carotid Bruits Chest wall/Lungs: Air entry diminished in bilateral lung bases. No crepitation/rhonchi Cardiovascular: Regular rate, Regular Rhythm, Normal S1, Normal S2, No M/G/R Abdomen: Bowel Sounds Present, Soft, Non Tender, Non-Distended : No dysuria. No renal angle tenderness. No suprapubic tenderness. Extremities: No edema, Capillary Refill Less than 3 Seconds Skin: Left hand and forearm under dressing. Swelling is overall better. Can make a fist. Erythema and swelling, pain and tenderness over left hand are improved. Musculoskeletal: Able to flex and extend left hand fingers. Opponens pollicis function present. Mild tenderness present over left hand and forearm region. Neurological: Cranial nerves II-XII grossly intact, DTR 2+/4. No acute focal neurological deficit. Psych/Mental Status: Normal Affect, Appropriate. Assessment & Plan Assessment/Plan (1) Cat bite of hand: (2) Leukocytosis: (3) CAD (coronary artery disease): QUALIFIERS: Coronary Disease-Associated Artery/Lesion type: [place] artery [place] vs. transplanted heart: [place] heart Associated angina: without angina Qualified Code(s): I25.10 - Atherosclerotic heart disease of [place] coronary artery without angina pectoris PLAN: Plan 78-year-old gentleman was admitted with cat bite around 8:30 PM on the day before admission which got progressively very swollen, tender red and painful, temperature of 102-103 in the ED and leukocytosis # Cat bite of left hand -Continue IV Zosyn. Evaluated by plastic surgeon. No fever overnight. Hand has only swollen but pain is better. Punch biopsy 5 mm around 2 bites on the dorsum of hand was done, culture was sent. Soak in warm soapy water to allow the infection to egress. -Hand x-ray with moderate soft tissue swelling. -Prelim blood culture shows aerobic gram-negative rods. Gram stain shows 4+ RBCs but no organism. -Pain control -OT consult -IV fluids 02/22: ID consult requested, reviewed and appreciated. Continue IV Zosyn. Tetanus shot if he did not had last 10 years. Suspicion of Pasteurella. 02/24: Blood culture and wound culture shows pustular multocida. Antibiotic narrowed down from change IV Zosyn to IV Unasyn. 02/25: Patient able to flex finger. Tenderness is also improved nearly restricted to the dorsal aspect of right hand. ID follow-up reviewed. Plan for 1 week of p.o. Augmentin 02/26: Cellulitis restricted to the dorsum of left hand. Evaluated by plastic surgeon and no pus came out. No purulence from the wound. Continue soaking and elevation. Might need to open distal wound slightly tomorrow at bedside but no OR plan. Planning for discharge on Friday and follow-up in the clinic on Friday, 02 March 2024. After discharge 5 more days of oral Augmentin 875 mg twice daily. ID follow-up appreciated 02/27: Improvement in the range of motion of the left hand, at at rest, MCP and PIP joints. Followed by Plastic surgeon, note reviewed. Plan for discharge tomorrow. #HTN -On carvedilol #GERD -Continue PPI # History of CAD -Stent in 2013 -Continue statin, beta-sanjeev, aspirin #Concern for urinary retention -Straight cath x 1 in ED Patient voided 2 times large and one-time incontinence. Continue postvoid check and if retention will need straight/Muir catheter. #DVT ppx: SCDs Mild thrombocytopenia. Platelet count was 1 57-1 65,000 in September 2023. Dropped to 119,000. Started on Lovenox, 40 mg subcu daily with holding parameters 02/24: Platelet count is 132,000. Microbiology Past 72 Hours 02/23/24 08:00 Aspirate - Hand Gram Stain - Final 02/23/24 08:00 Aspirate - Hand Wound Culture - Final Pasteurella multocida 02/23/24 08:00 Aspirate - Hand Anaerobic Culture - Final No anaerobic bacteria isolated. 02/22/24 16:10 Urine, Catheterized Urine Culture - Final Culture exhibits no growth. 02/22/24 14:28 Blood Culture (Wb) - Arm Left Blood Culture - Final Pasteurella multocida Laboratory Results 02/27/24 06:22: WBC 6.3, RBC 3.74 L, Hgb 11.0 L, Hct 35.3 L, MCV 94.4 H, MCH 29.4, MCHC 31.2 L, RDW Std Deviation 44.5 H, RDW Coeff of Arti 13.0, Plt Count 197, MPV 10.1, Immature Gran % (Auto) 0.600, Neut % (Auto) 72.6 H, Lymph % (Auto) 17.0 L, [place] % (Auto) 7.3, Eos % (Auto) 1.9, Baso % (Auto) 0.6, Absolute Neuts (auto) 4.6, Absolute Lymphs (auto) 1.07, Nucleated RBC % 0, Sodium 139, Potassium 3.9, Chloride 108 H, Carbon Dioxide 28.0, Anion Gap 3 L, BUN 15, Creatinine 1.02, Estim Creat Clear Calc 65.59, Est GFR (MDRD) Af Amer 91, Est GFR (MDRD) Non-Af 75, BUN/Creatinine Ratio 14.7, Glucose 108 H, Calcium 8.6 Charges/Coding Visit Charges Inpatient E&M: 47097 Subs Hosp L2
[2024-02-28 14:00] VITALS: BP 155/84; PULSE 61; RESP 16; TEMP 36.7; O2SAT 97
[2024-02-28 17:10] VITALS: BP 173/81; PULSE 72; RESP 18; TEMP 36.8; O2SAT 96
[2024-02-28 21:39] VITALS: BP 162/83; PULSE 61; RESP 16; TEMP 37; O2SAT 96
[2024-02-28] MEDS: Pravastatin 20 MG Tablet PO (21:54)
[2024-02-28] MEDS: Acetaminophen 325 MG Tablet 650 MG PO (21:59)
[2024-02-28] MEDS: Amox/Clavulanate 875 MG Tablet PO (21:59)
[2024-02-28] MEDS: 0.9% Saline Lock 10 ML Syringe IV (22:01)
[2024-02-29 05:45] VITALS: BP 155/87; PULSE 64; RESP 16; TEMP 37.2; O2SAT 98
[2024-02-29] MEDS: Acetaminophen 325 MG Tablet 650 MG PO (05:52)
--- NOTE | 2024-02-29 07:24 | DCINST_ITS ---
Discharge Instructions Diet Discharge Diet: No restrictions Activity Discharge Activity: Return to Normal Activity Weight Bearing Status: Weight bearing as tolerated Dressing / Incision Call your doctor if you observe: Fever of 101 or Higher, Coldness, Increased Pain, Numbness or Tingling, Change in Color, Inability to urinate, Inability to have a bowel movement, Shortness of breath, Dizziness, Fainting spells, Swelling in the ankles, Chest pain, Prolonged hiccupping, Increased palpitations (irregular heartbeat) and Calf discomfort Follow Up Care When: IN 2 WEEKS Test Results: Test results from this visit will be discussed in further detail at your follow- up appointment, if applicable. Discharge Plan Admission Admit Date/Time: 02/22/24 16:49 Primary Reason for Your Visit: Left hand cat bite. Attending Provider: Rey Al Primary Care Provider: Gagan Schofield Consulting Providers: Óscar Wu; Nancy Hallman; Óscar Fernandez Discharge Orders/Prescriptions Prescriptions: New amoxicillin-pot clavulanate 875-125 mg Tablet 1 tab PO BID 4 Days Qty: 8 0RF carvedilol 12.5 mg Tablet 12.5 mg PO BID 30 Days Qty: 60 2RF Rx Instructions: Hold for heart less than 50 or systolic blood pressure less than 100 mmHg. lisinopril 10 mg Tablet 10 mg PO BIDCM 30 Days Qty: 60 1RF Rx Instructions: Hold for SBP less than 130 mmHg Continued pantoprazole 40 mg tablet,delayed release (DR/EC) 40 mg PO DAILY pravastatin 20 mg tablet 20 mg PO .every other day Patient Comments: Half a tablet every other day. carvedilol 6.25 mg tablet 6.25 mg PO BID aspirin 81 mg capsule 81 mg PO DAILY Referrals / Follow Up: Gagan Schofield MD [Primary Care Provider] - Within 2 Weeks (For high blood pressure. Blood pressure was in the 180s controlled to 140s to 150s) Óscar Wu MD [Med Staff - Active Staff] - 03/02/24 (For left hand cat bite.) Disposition Disposition (needs filled in before D/C Order can be placed): Home, Self Care
[2024-02-29 09:15] VITALS: BP 152/81; PULSE 74; RESP 18; TEMP 36.8; O2SAT 99
[2024-02-29] MEDS: Lisinopril 10 MG Tablet PO (09:18)
[2024-02-29] MEDS: Pantoprazole Sodium 40 MG Tablet PO (09:18)
[2024-02-29] MEDS: Amox/Clavulanate 875 MG Tablet PO (09:18)
[2024-02-29] MEDS: Carvedilol 12.5 MG Tablet PO (09:18)
[2024-02-29] MEDS: Aspirin 81 MG TAB.CHEW PO (09:18)
[2024-02-29] MEDS: Enoxaparin 40 MG/0.4 ML Syringe SC (09:18)
--- NOTE | 2024-02-29 09:45 | PCM.PN.SRG ---
Subjective Subjective Doing well this morning after change to PO antibiotics. Objective Data Objective Data Vital Signs: Vital Signs Temp Pulse Resp BP Pulse Ox O2 Del Method 98.9 F 64 16 155/87 H 98 Room Air 02/29/24 05:45 02/29/24 05:45 02/29/24 05:45 02/29/24 05:45 02/29/24 05:45 02/29/24 05:45 Oxygen Delivery Method Room Air Weight: 202 lb 13.204 oz Body Mass Index (BMI) 31.7 Intake & Output: Intake and Output for Last 24 Hours 02/27/24 02/28/24 02/29/24 23:59 23:59 23:59 Intake Total 1048 / 1348 781.5 / 1081.5 500 / 500 Balance 1048 / 1348 781.5 / 1081.5 500 / 500 Lab / Micro Data 02/27/24 06:22 02/27/24 06:22 Micro: Microbiology 02/23/24 08:00 Aspirate - Hand Gram Stain - Final 02/23/24 08:00 Aspirate - Hand Wound Culture - Final Pasteurella multocida 02/23/24 08:00 Aspirate - Hand Anaerobic Culture - Final No anaerobic bacteria isolated. 02/22/24 16:10 Urine, Catheterized Urine Culture - Final Culture exhibits no growth. 02/22/24 14:28 Blood Culture (Wb) - Arm Left Blood Culture - Final Pasteurella multocida Physical Exam Narrative LUE: No pain in the joints of the left hand. Isolated induration/erythema around the small puncture in the distal dorsum of the hand, no purulence today though. Assessment & Plan Assessment/Plan (1) Cellulitis of left hand: PLAN: OK for DC home from plastics standpoint Continue PO antibiotics per ID F/u with me on 02 Mar 2024 (Friday morning) to check progress Patient will continue TID Dial soap soaks and dry dressings at home. No restrcitions on hand movement Charges/Coding Visit Charges Inpatient E&M: 70378 Subs Hosp L1
--- NOTE | 2024-02-29 10:36 | PCM.DC.SUM ---
Providers Date of Admission: 02/22/24 Date of Discharge: 02/29/24 Primary Care Physician: Dr. Gagan Schofield MD Consultations 02/22/24 15:48 Consult: Plastic Surgery Routine Consulting Provider: Óscar Wu Reason for Consult: cat bite hand, left EMERGENT Consult: No Notified: Yes Date Notified: 02/22/24 Time Notified: 15:49 Method of Notification: ED Physician Initiated 02/22/24 17:56 Consult: Plastic Surgery Routine Consulting Provider: Óscar Wu Reason for Consult: Cat bite to left hand EMERGENT Consult: No Notified: Yes Date Notified: 02/22/24 Time Notified: 16:53 Method of Notification: ED Physician Initiated 02/24/24 09:30 Consult: Infectious Disease Routine Consulting Provider: Óscar Fernandez Reason for Consult: CAT bite left hand, GNR in blood and wound EMERGENT Consult: No Notified: Yes Date Notified: 02/24/24 Time Notified: 09:31 Method of Notification: Text Reason For Visit: CAT BITE AND CELLULITIS Diagnosis Discharge Diagnosis (1) Cat bite of hand: Status: Acute Code(s): S61.459A - Open bite of unspecified hand, initial encounter; W55.01XA - Bitten by cat, initial encounter (2) Leukocytosis: Status: Acute Code(s): D72.829 - Elevated white blood cell count, unspecified (3) CAD (coronary artery disease): Status: Acute Code(s): I25.10 - Atherosclerotic heart disease of [place] coronary artery without angina pectoris Qualifiers: Associated angina: without angina Coronary Disease-Associated Artery/Lesion type: [place] artery [place] vs. transplanted heart: [place] heart Qualified Code(s): I25.10 - Atherosclerotic heart disease of [place] coronary artery without angina pectoris Plan 78-year-old gentleman was admitted with cat bite around 8:30 PM on the day before admission which got progressively very swollen, tender red and painful, temperature of 102-103 in the ED and leukocytosis # Cat bite of left hand -Continue IV Zosyn. Evaluated by plastic surgeon. No fever overnight. Hand has only swollen but pain is better. Punch biopsy 5 mm around 2 bites on the dorsum of hand was done, culture was sent. Soak in warm soapy water to allow the infection to egress. -Hand x-ray with moderate soft tissue swelling. -Prelim blood culture shows aerobic gram-negative rods. Gram stain shows 4+ RBCs but no organism. -Pain control -OT consult -IV fluids 02/22: ID consult requested, reviewed and appreciated. Continue IV Zosyn. Tetanus shot if he did not had last 10 years. Suspicion of Pasteurella. 02/24: Blood culture and wound culture shows pustular multocida. Antibiotic narrowed down from change IV Zosyn to IV Unasyn. 02/25: Patient able to flex finger. Tenderness is also improved nearly restricted to the dorsal aspect of right hand. ID follow-up reviewed. Plan for 1 week of p.o. Augmentin 02/26: Cellulitis restricted to the dorsum of left hand. Evaluated by plastic surgeon and no pus came out. No purulence from the wound. Continue soaking and elevation. Might need to open distal wound slightly tomorrow at bedside but no OR plan. Planning for discharge on Friday and follow-up in the clinic on Friday, 02 March 2024. After discharge 5 more days of oral Augmentin 875 mg twice daily. ID follow-up appreciated 02/27: Improvement in the range of motion of the left hand, at at rest, MCP and PIP joints. Followed by Plastic surgeon, note reviewed. Plan for discharge tomorrow. 02/24: Further improvement in the range of motion and decreased swelling. Patient discharged on Augmentin for 4 more days. Patient has appointment with Dr. Wu on coming 03/19/2024 #HTN -On carvedilol Blood pressure is 152/81 better than admission which was in 180s #GERD -Continue PPI # History of CAD -Stent in 2013 -Continue statin, beta-sanjeev, aspirin #Concern for urinary retention -Straight cath x 1 in ED Patient voided 2 times large and one-time incontinence. Continue postvoid check and if retention will need straight/Muir catheter. 02/28: Patient voiding urine good no acute issues. #DVT ppx: SCDs Mild thrombocytopenia. Platelet count was 1 57-1 65,000 in September 2023. Dropped to 119,000. Started on Lovenox, 40 mg subcu daily with holding parameters 02/24: Platelet count is 132,000. 811: Platelet count was 107,000 Discharge medication reconciliation done. Discharge follow-up instructions completed. Discharge process discussed with the patient and all questions were answered to patient's satisfaction. Follow with PCP in 1 to 2 weeks Total time spent, exact 35 minutes on discharge meds reconciliation, examination, coordination of care with nurses and ancillary staff, review of imaging and blood test and discussion with the patient on follow-up instructions. Microbiology Past 72 Hours 02/23/24 08:00 Aspirate - Hand Gram Stain - Final 02/23/24 08:00 Aspirate - Hand Wound Culture - Final Pasteurella multocida 02/23/24 08:00 Aspirate - Hand Anaerobic Culture - Final No anaerobic bacteria isolated. 02/22/24 16:10 Urine, Catheterized Urine Culture - Final Culture exhibits no growth. 02/22/24 14:28 Blood Culture (Wb) - Arm Left Blood Culture - Final Pasteurella multocida Laboratory Results 02/27/24 06:22: WBC 6.3, RBC 3.74 L, Hgb 11.0 L, Hct 35.3 L, MCV 94.4 H, MCH 29.4, MCHC 31.2 L, RDW Std Deviation 44.5 H, RDW Coeff of Arti 13.0, Plt Count 197, MPV 10.1, Immature Gran % (Auto) 0.600, Neut % (Auto) 72.6 H, Lymph % (Auto) 17.0 L, [place] % (Auto) 7.3, Eos % (Auto) 1.9, Baso % (Auto) 0.6, Absolute Neuts (auto) 4.6, Absolute Lymphs (auto) 1.07, Nucleated RBC % 0, Sodium 139, Potassium 3.9, Chloride 108 H, Carbon Dioxide 28.0, Anion Gap 3 L, BUN 15, Creatinine 1.02, Estim Creat Clear Calc 65.59, Est GFR (MDRD) Af Amer 91, Est GFR (MDRD) Non-Af 75, BUN/Creatinine Ratio 14.7, Glucose 108 H, Calcium 8.6 Medications at Discharge Home Medications aspirin 81 mg capsule 81 mg PO DAILY heart health 10/08/23 carvedilol 6.25 mg tablet 6.25 mg PO BID blood pressure 10/08/23 pantoprazole 40 mg tablet,delayed release 40 mg PO DAILY reflux 10/08/23 pravastatin 20 mg tablet 20 mg PO .every other day cholesterol 10/08/23 amoxicillin 875 mg-potassium clavulanate 125 mg tablet 1 tab PO BID 4 days #8 tabs 02/29/24 carvedilol 12.5 mg tablet 12.5 mg PO BID 30 days #60 tabs 02/29/24 lisinopril 10 mg tablet 10 mg PO BIDCM 30 days #60 tabs 02/29/24 Physical Exam Narrative Seen and examined. No fever. Patient able to flex his finger and make a fist. ellulitis has much improved now restricted to the dorsum of left hand. Wound culture and blood culture shows Pasteurella multocida. Physical exam General: Alert, Oriented x3, Cooperative HEENT: Atraumatic, PERRLA, EOMI, Normocephalic Oral: No Gingival or Mucosal Lesions/ Ulcerations Neck: Supple, No JVD, Negative Carotid Bruits Chest wall/Lungs: Air entry diminished in bilateral lung bases. No crepitation/rhonchi Cardiovascular: Regular rate, Regular Rhythm, Normal S1, Normal S2, No M/G/R Abdomen: Bowel Sounds Present, Soft, Non Tender, Non-Distended : No dysuria. No renal angle tenderness. No suprapubic tenderness. Extremities: No edema, Capillary Refill Less than 3 Seconds Skin: Left hand and forearm under dressing. Swelling is overall better. Can make a fist. Erythema and cellulitis are much improved Musculoskeletal: Able to flex and extend left hand fingers. Opponens pollicis function present. Minimal tenderness present over left hand and forearm region. Neurological: Cranial nerves II-XII grossly intact, DTR 2+/4. No acute focal neurological deficit. Psych/Mental Status: Normal Affect, Appropriate. Weight / BMI Weight Weight: 202 lb 13.204 oz Body Mass Index (BMI) 31.7 ABG / Lab / Microbiology Data 02/27/24 06:22 02/27/24 06:22 Microbiology: Microbiology 02/23/24 08:00 Aspirate - Hand Gram Stain - Final 02/23/24 08:00 Aspirate - Hand Wound Culture - Final Pasteurella multocida 02/23/24 08:00 Aspirate - Hand Anaerobic Culture - Final No anaerobic bacteria isolated. 02/22/24 16:10 Urine, Catheterized Urine Culture - Final Culture exhibits no growth. 02/22/24 14:28 Blood Culture (Wb) - Arm Left Blood Culture - Final Pasteurella multocida D/C Instructions Discharge Diet: No restrictions Weight Bearing Status: Weight bearing as tolerated Call your doctor if you observe: Fever of 101 or Higher, Coldness, Increased Pain, Numbness or Tingling, Change in Color, Inability to urinate, Inability to have a bowel movement, Shortness of breath, Dizziness, Fainting spells, Swelling in the ankles, Chest pain, Prolonged hiccupping, Increased palpitations (irregular heartbeat) and Calf discomfort When: IN 2 WEEKS Meaningful Use Info Meaningful Use Meaningful Use Diagnoses (Choose all that apply): None applicable Ischemic Stroke Statin Dosing Therapy Reference: STATIN DOSE THERAPY REFERENCE: * Patients > 75 years receive moderate or high dose statin therapy. * Patients 75 years or YOUNGER should receive HIGH intensity statin dose unless contraindicated. You will be required to document reason for non-treatment if statin daily dose does not meet guidelines. HIGH DOSE STATIN THERAPY DAILY Atorvastatin > than or = to 40 mg Rosuvastatin > than or = to 20 mg Amlodipine + Atorvastatin > than or = to 2.5/40 mg Ezetimibe + Simvastatin 10/80 mg Simvastatin 80mg Discharge Plan Admission Admit Date/Time: 02/22/24 16:49 Primary Reason for Your Visit: Left hand cat bite. Attending Provider: Rey Al Primary Care Provider: Gagan Schofield Consulting Providers: Óscar Wu; Nancy Hallman; Óscar Fernandez Discharge Orders/Prescriptions Prescriptions: New amoxicillin-pot clavulanate 875-125 mg Tablet 1 tab PO BID 4 Days Qty: 8 0RF carvedilol 12.5 mg Tablet 12.5 mg PO BID 30 Days Qty: 60 2RF Rx Instructions: Hold for heart less than 50 or systolic blood pressure less than 100 mmHg. lisinopril 10 mg Tablet 10 mg PO BIDCM 30 Days Qty: 60 1RF Rx Instructions: Hold for SBP less than 130 mmHg Continued pantoprazole 40 mg tablet,delayed release (DR/EC) 40 mg PO DAILY pravastatin 20 mg tablet 20 mg PO .every other day Patient Comments: Half a tablet every other day. carvedilol 6.25 mg tablet 6.25 mg PO BID aspirin 81 mg capsule 81 mg PO DAILY Referrals / Follow Up: Gagan Schofield MD [Primary Care Provider] - Within 2 Weeks (For high blood pressure. Blood pressure was in the 180s controlled to 140s to 150s) Óscar Wu MD [Med Staff - Active Staff] - 03/02/24 (For left hand cat bite.) Disposition Disposition (needs filled in before D/C Order can be placed): Home, Self Care Charges/Coding Visit Charges Inpatient E&M: 91039 Disch Hosp >30min
--- NOTE | 2024-03-02 11:39 | CASEMGMT ---
Tressa from [facility] states to this RN CM that the pt is refusing their services as he believes it is not warranted. Pt states that he is doing all that he needs to be doing and refuses the HHC.
== END 2024-02-29 10:28 | disposition home health service (06) | DRG 872 ==
LOC: ED 16:13 → MS3 17:16
PROVIDERS: Admitting Provider Internal Medicine; Emergency Provider Emergency Medicine; PCP Family Medicine; Visit Provider Internal Medicine
DX: A41.50 Gram-negative sepsis, unspecified (principal); L03.114 Cellulitis of left upper limb; D69.6 Thrombocytopenia, unspecified; N18.30 Chronic kidney disease, stage 3 unspecified; I12.9 Hypertensive chronic kidney disease with stage 1 through stage 4 chronic kidney disease, or unspecified chronic kidney disease; E78.00 Pure hypercholesterolemia, unspecified; S61.452A Open bite of left hand, initial encounter; K21.9 Gastro-esophageal reflux disease without esophagitis; I25.10 Atherosclerotic heart disease of native coronary artery without angina pectoris; Z79.82 Long term (current) use of aspirin; Z95.5 Presence of coronary angioplasty implant and graft; I49.3 Ventricular premature depolarization; W55.01XA Bitten by cat, initial encounter; Z23 Encounter for immunization
CPT/HCPCS: 36415; 73130; 80048; 80053; 81001; 83605; 83735; 85025; 85610; 85730; 87040; 87070; 87075; 87077; 87086; 87186; 87205; 90471; 90715; 93005; 97110; 97165; 97530; 97535; 99285; J7030; A4216; J0295

== ENCOUNTER → 2024-03-09 | Outpatient (CLI) | payer MEDICARE, OTHER, SELFPAY ==
--- NOTE | 2024-03-09 11:15 | RAD_ITS ---
EXAM: XR LEFT HAND COMPLETE, 3 OR MORE VIEWS CLINICAL INDICATION: left hand pain after cat bite TECHNIQUE: Frontal, lateral and oblique views of the left hand. 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 SOFT TISSUES: Radiopaque foreign body again identified in the ulnar aspect of the hand similar to the prior examination measuring approximately 2 mm. Diffuse soft tissue swelling. RAD/Hand Min 3 Views IMPRESSION: 1. Radiopaque foreign body again identified in the ulnar aspect of the hand similar to the prior examination measuring approximately 2 mm. 2. Diffuse soft tissue swelling. 3. 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 Electronically Signed: Srini Sánchez DO at 23:58 EDT ,
== END | disposition home or self-care (01) ==
LOC: RAD 11:11
PROVIDERS: PCP Family Medicine; Referring Provider Nurse Practitioner Family; Visit Provider Nurse Practitioner Family
DX: M79.642 Pain in left hand (principal); S61.452A Open bite of left hand, initial encounter; W55.01XA Bitten by cat, initial encounter
CPT/HCPCS: 73130

== ENCOUNTER → 2024-03-31 | Outpatient (CLI) | payer MEDICARE, OTHER, SELFPAY ==
--- NOTE | 2024-03-31 11:56 | NEURO_ITS ---
NCS and/or EMG Patient Report Ordering Doctor: Kerri Pendleton NP DATE OF SERVICE: 03/31/24 Murray presents for electrodiagnostic testing of the left upper limb due to numbness and tingling in the hand. Electrodiagnostic Findings: Left median motor nerve demonstrates prolonged distal latency with normal amplitude and conduction velocity. There is a decrease in ulnar motor conduction velocity across the elbow. There is normal ulnar motor latency and amplitude. Prolonged median sensory latency at the wri st. Prolonged median and ulnar F-waves . Needle EMG testing was performed in the left upper limb. All muscles tested showed no evidence of denervation with normal motor unit action potentials. Electrodiagnostic Assessment: This is an abnormal study. 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 This is consistent with a mild to moderate left carpal tunnel syndrome. 2) Electrodiagnostic finings suggestive of a mild left cubital tunnel syndrome. 3) No electrodiagnostic evidence for cervical radiculopathy. Multi Select Codes Neurology Neurology Interp Codes: 94069-80 Musc test done w/n test comp (interp) and 19081-14 Nrv cndj tst 5-6 studies (interp)
== END | disposition home or self-care (01) ==
LOC: PSN 09:55
PROVIDERS: PCP Family Medicine; Referring Provider Nurse Practitioner Family; Visit Provider Nurse Practitioner Family
DX: R20.0 Anesthesia of skin (principal); R20.2 Paresthesia of skin; M79.642 Pain in left hand; S61.459A Open bite of unspecified hand, initial encounter; W55.01XA Bitten by cat, initial encounter
CPT/HCPCS: 95886; 95909